=== PATIENT | female | born 1950 | race Caucasian/White ===

== ENCOUNTER → 2019-10-10 14:29 | Outpatient (BNVA) | payer MEDICARE, MEDICAID, SELFPAY | PROVIDERS: Family Provider Nurse Practitioner Family; PCP Nurse Practitioner Family; Visit Provider Nurse Practitioner Family | DX: N39.0 Urinary tract infection, site not specified (principal); Z68.27 Body mass index [BMI] 27.0-27.9, adult | CPT/HCPCS: 81003; 87086 ==

== ENCOUNTER → 2019-10-31 13:44 | Outpatient (BNVA) | payer MEDICARE, MEDICAID, SELFPAY | PROVIDERS: Family Provider Nurse Practitioner Family; PCP Nurse Practitioner Family; Visit Provider Nurse Practitioner Family | DX: R39.9 Unspecified symptoms and signs involving the genitourinary system (principal); R82.90 Unspecified abnormal findings in urine; Z68.27 Body mass index [BMI] 27.0-27.9, adult | CPT/HCPCS: 81003; 87086 ==

== ENCOUNTER 2019-12-21 08:14 | Day surgery (SDC) | payer MEDICARE, MEDICAID, SELFPAY ==
[2019-12-20 09:02] VITALS: BMI 27.3
[2019-12-21 08:27] VITALS: BP 170/78; PULSE 68; RESP 16; TEMP 36.2; O2SAT 96
--- NOTE | 2019-12-21 08:44 | P.ANESASSM_ITS ---
Pre-Anesthetic Assessment Pre-Anesthetic Assessment: Height/Weight: Height 1.65 m Weight 74.389 kg Preop Diagnosis: d Proposed Procedure: Operation Date: 12/21/19 09:30 Proposed Procedures p EGD 60325 R10(Not Applicable) - Rafael Loomis MD Last intake: Intake Last Liquid Date 12/20/19 Last Liquid Time 20:00 Last Solid Date 12/20/19 Last Solid Time 20:00 Social: Social History: No alcohol and No tobacco Exam: Pre-Anes Outpt Exam: alert, oriented x 3, clear to auscultation yadi aterally and regular rate & rhythm Airway: Submandibular: WNL Cervical ROM: WNL MP: 2 Dentition: False (upper) and Other (poor) Pulmonary: Pulmonary: None reported CV/HEM: CV/HEM: CAD, HTN and UT : : UTI Hepatic: Hepatic: None reported GI: GI: GERD Metabolic: Metabolic: Hyperlipidemia Musc/skel: Musc/skel: OA/DJD Neuropsych: Neuropsych: 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) Anesthetic Plan: ASA status: 3 Anesthesia: Anesthesia Evaluation and MAC PFSH Anesthesia PFSH: Medical History CAD (coronary artery disease) CVA (cerebral vascular accident) Enrolled in chronic care management Epigastric pain Essential hypertension Fibromyalgia History of UT (myocardial infarction) Hyperlipidemia Postmenopausal HRT (hormone replacement therapy) Rheumatoid arteritis Urinary tract infection Surgical History History of carotid endarterectomy r History of cholecystectomy History of hysterectomy History of shoulder surgery r History of thumb surgery bilat Social History Smoking and tobacco status: never smoked Alcohol intake: never Marital status: History of recent travel: No Current gender identity: Female Data Anesthesia Cardiac Studies: No Data to Display
[2019-12-21] MEDS: sodium chloride 0.9% 1,000 ML 30 ML IV (08:52)
--- NOTE | 2019-12-21 09:31 | W.PM.OPSUD ---
Surgery/Procedure H&P Update DATE OF PROCEDURE: December 21, 2019 DATE H&P PERFORMED: 11/28/19 PREOP DIAGNOSIS: d PLANNED PROCEDURE: Operation Date: 12/21/19 09:30 Proposed Procedures p EGD 45932 R10(Not Applicable) - Rafael Loomis MD
[2019-12-21 09:45] VITALS: BP 136/77; PULSE 67; RESP 16; TEMP 36.6; O2SAT 95
[2019-12-21 10:00] VITALS: BP 154/80; PULSE 64; RESP 16; TEMP 36.6; O2SAT 96
--- NOTE | 2019-12-21 12:09 | SUR.PHASEII ---
METOCLOPRAMIDE 5MG PO AC DISPENSE 90 REFILL 3 CALLED OUT TO [facility] PER DR KRISHNA'S ORDER AND PT CALLED AND INFORMED HER OF THIS AND TO DISCONTINUE IBUPROFEN AND VERBALIZED UNDERSTANDING
== END 2019-12-21 10:10 | disposition home or self-care (01) ==
PROVIDERS: Family Provider Nurse Practitioner Family; PCP Nurse Practitioner Family; Visit Provider Internal Medicine
PROC: 0DJ08ZZ Inspection of Upper Intestinal Tract, Via Natural or Artificial Opening Endoscopic (ICD-10-PCS; CPT 43235; principal; 2019-12-21 09:30)
DX: R10.13 Epigastric pain (principal); K31.89 Other diseases of stomach and duodenum; Z79.82 Long term (current) use of aspirin; I25.10 Atherosclerotic heart disease of native coronary artery without angina pectoris; M79.7 Fibromyalgia; I25.2 Old myocardial infarction; E78.5 Hyperlipidemia, unspecified; M06.9 Rheumatoid arthritis, unspecified; I10 Essential (primary) hypertension; M19.90 Unspecified osteoarthritis, unspecified site; I69.851 Hemiplegia and hemiparesis following other cerebrovascular disease affecting right dominant side
CPT/HCPCS: 12345; 43235; J2001; J2704; J7030

== ENCOUNTER 2020-03-04 08:00 | Outpatient (RCR) | payer MEDICARE, MEDICAID, SELFPAY | END 2020-04-24 08:00 | disposition home or self-care (01) | LOC: GPT 08:00 | PROVIDERS: PCP Nurse Practitioner Family; Referring Provider Physical Medicine & Rehabilitation; Visit Provider Physical Medicine & Rehabilitation | DX: M46.04 Spinal enthesopathy, thoracic region (principal); M54.6 Pain in thoracic spine | CPT/HCPCS: 97032; 97110; 97140; 97161; 97164; 97530 ==

== ENCOUNTER → 2020-03-20 11:27 | Outpatient (BNVA) | payer MEDICARE, MEDICAID, SELFPAY | PROVIDERS: Family Provider Nurse Practitioner Family; PCP Nurse Practitioner Family; Visit Provider Nurse Practitioner Family | DX: I10 Essential (primary) hypertension (principal) | CPT/HCPCS: 80053; 80061; 83735; 84439; 84443 ==

== ENCOUNTER → 2020-05-09 11:43 | Outpatient (BNVA) | payer MEDICARE, MEDICAID, SELFPAY | PROVIDERS: Family Provider Nurse Practitioner Family; PCP Nurse Practitioner Family; Visit Provider Nurse Practitioner Family | DX: M79.642 Pain in left hand (principal); M79.641 Pain in right hand; R79.89 Other specified abnormal findings of blood chemistry; R30.0 Dysuria | CPT/HCPCS: 73130; 80053; 81000 ==

== ENCOUNTER → 2020-05-12 08:59 | Outpatient (BNVA) | payer MEDICARE, MEDICAID, SELFPAY | PROVIDERS: Family Provider Nurse Practitioner Family; PCP Nurse Practitioner Family; Visit Provider Nurse Practitioner Family | DX: R30.0 Dysuria (principal); I10 Essential (primary) hypertension | CPT/HCPCS: 80053; 81000; 87086 ==

== ENCOUNTER 2020-05-19 11:36 | Outpatient (CLI) | payer MEDICARE, MEDICAID, SELFPAY ==
--- NOTE | 2020-05-19 11:51 | MM_ITS ---
WS: [id number] BILATERAL SCREENING DIGITAL MAMMOGRAM WITH CAD HISTORY: SCREENING COMPARISON: 02/06/2019 and 01/14/2017 Bilateral CC and MLO views submitted. Computer aided detection analyzed. Breast composition: There are scattered areas of fibroglandular density. No suspicious masses, microc alcifications or architectural distortion. MM/[place] [id number] IMPRESSION: BI-RADS: 1-Negative FOLLOW UP: 1 Year Follow-up
== END 2020-05-19 11:37 | disposition home or self-care (01) ==
LOC: RADSHAW 11:42
PROVIDERS: PCP Nurse Practitioner Family; Visit Provider Nurse Practitioner Family
DX: Z12.31 Encounter for screening mammogram for malignant neoplasm of breast (principal)
CPT/HCPCS: 77067

== ENCOUNTER 2020-07-18 10:40 | Outpatient (CLI) | payer MEDICARE, MEDICAID, SELFPAY ==
--- NOTE | 2020-07-18 10:46 | XR_ITS ---
WS: [id number] Right hand, 2 views, 07/18/2020 Clinical Data: hand pain Comparison: Right hand, 05/09/2020. Findings: No fractures or dislocations are seen. There is absence of the triquetrum. There is osteo arthritic changes of the right first IP joint, the second through fifth PIP joints and second through fifth DIP joints. No periarticular demineralization is present. There are no periarticular calcifica tions. 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
--- NOTE | 2020-07-18 10:46 | XR_ITS ---
WS: [id number] Left foot, 2 views, 07/18/2020 Clinical Data: foot pain Comparison: Left foot, 06/08/2017. Findings: No fractures or dislocations are seen. No bone destruction or erosion is noted. There is a bunion at the head of the left first metatarsal.There is a plantar spur. No periarticular demineralization or c alcifications are seen. XR/XR foot LT 2V [id number] Impression: Bunion at head of left first metatarsal.
--- NOTE | 2020-07-18 10:46 | XR_ITS ---
WS: [id number] Left hand, 2 views, 07/18/2020 Clinical Data: hand pain Comparison: Left hand, 05/09/2020. Findings: No fractures or dislocations are seen. The soft tissues are unremarkable. There is absence of the tri quetrum. There is osteoarthritic change of the left first IP joint. There is mild osteoarthritic narr owing of the left second through fifth PIP joints and also of the DIP joints. No periarticular demine ralization or significant calcifications are seen. XR/XR hand LT 2V [id number] Impression: Osteoarthritic changes of the left first IP joint and of the second through fif th PIP and DIP joints of the left hand.
--- NOTE | 2020-07-18 10:46 | XR_ITS ---
WS: [id number] Right foot, 2 views, 07/18/2020 Clinical Data: foot pain Comparison: None. Findings: No fractures or dislocations are seen. No bone destruction or erosion is noted. There is a small buni on at the head of the right first metatarsal. Hammertoe deformities of the third through fifth toes i s seen. There is a plantar spur. No periarticular demineralization or calcifications are noted. XR/XR foot RT 2V [id number] Impression: 1. Bunion of the head of the right first metatarsal. 2. Hammertoe deformities of the third through fifth toes of the right foot.
== END 2020-07-18 10:41 | disposition home or self-care (01) ==
PROVIDERS: PCP Nurse Practitioner Family; Visit Provider Internal Medicine
DX: M25.542 Pain in joints of left hand (principal); Z79.899 Other long term (current) drug therapy; M79.673 Pain in unspecified foot; Z11.59 Encounter for screening for other viral diseases; D86.9 Sarcoidosis, unspecified; R20.0 Anesthesia of skin; M25.541 Pain in joints of right hand; M25.519 Pain in unspecified shoulder; M25.562 Pain in left knee; M25.561 Pain in right knee
CPT/HCPCS: 36415; 73120; 73620; 85651; 86140; 86431; 86704; 86803; 86812; 87340; 99203

== ENCOUNTER 2020-08-08 12:44 | Outpatient (CLI) | payer MEDICARE, MEDICAID, SELFPAY ==
--- NOTE | 2020-08-08 12:53 | USCV_ITS ---
Michelle Mello Age: 70 Gender: F : 1950 Exam Date: 08/08/2020 13:20 Ordering Phys: Maury eGiger MD (Andy[email or web address] [place] Technologist: Marlee Carrillo [place] [facility] [place]: carotid stenosis Risk Factors: Previous Vascular Surgery: R CEA Right Brachial BP: / Left Brachial BP: / Right Left Velocity (cm/s) Spectral Plaque Velocity (cm/s) Spectral Plaque Syst/Diast Broadening Syst/Diast Broadening 72.20/ 13.20 Prox CCA 53.60 / 11.50 89.30/ 17.60 Mid CCA 52.40 / 13.40 55.50/ 16.10 Distal CCA 51.40 / 14.60 63.70/ 12.70 Prox ICA 50.70 / 13.90 83.50/ 22.50 Mid ICA 70.80 / 18.70 82.30/ 20.10 Distal ICA 72.90 / 20.80 60.10 ECA 50.70 0.93 ICA/CCA 1.39 Antegrade Vertebral Antegrade 39.50/ 9.30 cm/s 44.80/ 11.20 cm/s Tri Subclavian Bi 111.8 95.00 0 CONCLUSIONS Right ICA stenosis <50%. Prior Right CEA Left ICA stenosis <50%. Normal antegrade Doppler flow noted in the right vertebral artery. Normal antegrade Doppler flow noted in the left vertebral artery. Ata Meadows MD (Electronically Signed) Final Date: 08 August 2020 17:07 S
== END 2020-08-08 12:45 | disposition home or self-care (01) ==
PROVIDERS: PCP Nurse Practitioner Family; Visit Provider Thoracic Surgery (Cardiothoracic Vascular Surgery)
DX: I65.23 Occlusion and stenosis of bilateral carotid arteries (principal)
CPT/HCPCS: 93880

== ENCOUNTER → 2021-02-23 10:26 | Outpatient (BNVA) | payer MEDICARE, MEDICAID, SELFPAY | PROVIDERS: PCP Nurse Practitioner Family; Visit Provider Family Medicine | DX: R82.90 Unspecified abnormal findings in urine (principal); R63.4 Abnormal weight loss | CPT/HCPCS: 80053; 81003; 84439; 84443; 85025; 87086 ==

== ENCOUNTER 2021-05-11 10:38 | Outpatient (CLI) | payer MEDICARE, MEDICAID, SELFPAY ==
--- NOTE | 2021-05-11 11:00 | USCV_ITS ---
Michelle Mello Age: 71 Gender: F : 1950 Exam Date: 05/11/2021 11:18 Ordering Phys: Maury Geiger MD (Andy) ([facility] [place]) Technologist: Osiris Luna Exam Location: [facility] [place] Indication: RECHECK RT CEA Risk Factors: Unknown Previous Vascular Surgery: RCEA Right Brachial BP: / Left Brachial BP: / Right Left Velocity (cm/s) Spectral Plaque Velocity (cm/s) Spectral Plaque Syst/Diast Broadening Syst/Diast Broadening 94.80/ 22.10 Prox CCA 51.90 / 13.50 72.80/ 25.40 Mid CCA 63.40 / 20.20 79.40/ 24.30 Distal CCA 62.50 / 17.30 Hetro 80.80/ 21.70 Prox ICA 44.20 / 18.30 63.10/ 18.70 Mid ICA 45.20 / 14.40 75.90/ 25.00 Distal ICA 44.10 / 13.80 103.50 ECA 64.40 1.11 ICA/CCA 0.71 Antegrade Vertebral Antegrade 55.70/ 18.30 cm/s 41.80/ 16.00 cm/s Tri Subclavian Bi 87.00 63.60 FINDINGS Minimal dense plaques at the bifurcation and the proximal internal carotid arteries bilaterally. Intimal thickening in the common carotid arteries bilaterally. Antegrade flow in the vertebral arteries bilaterally. Normal Doppler flow velocities in the subclavian, vertebral and external carotid arteries. CONCLUSIONS Minimal dense plaques at the bifurcations and proximal internal carotid arteries bilaterally suggesting less than 50% stenosis. Intimal thickening in the common carotid arteries bilaterally. No significant stenosis in the vertebral, subclavian and external carotid arteries bilaterally Dr Tato Reynoso MD [facility] (Electronically Signed) Final Date: 11 May 2021 17:00 S
== END 2021-05-11 10:39 | disposition home or self-care (01) ==
PROVIDERS: PCP Nurse Practitioner Family; Visit Provider Thoracic Surgery (Cardiothoracic Vascular Surgery)
DX: I65.23 Occlusion and stenosis of bilateral carotid arteries (principal)
CPT/HCPCS: 93880

== ENCOUNTER → 2021-06-26 14:54 | Outpatient (BNVA) | payer MEDICARE, MEDICAID, SELFPAY | PROVIDERS: PCP Nurse Practitioner Family; Visit Provider Nurse Practitioner Family | DX: R30.0 Dysuria (principal) | CPT/HCPCS: 81000 ==

== ENCOUNTER 2021-10-12 08:07 | Outpatient (CLI) | payer MEDICARE, MEDICAID, SELFPAY ==
--- NOTE | 2021-10-12 08:16 | MM_ITS ---
WS: [id number] SCREENING DIGITAL MAMMOGRAM WITH CAD HISTORY: SCREENING COMPARISON: 10/12/2021, 05/19/2020, 01/23/2018 Bilateral CC and MLO views submitted. Computer aided detection analyzed. Breast composition: The breasts are heterogeneously dense, which may obscure small masses. Focal asym metries are noted on the RIGHT CC projection. One of these asymmetries measures 6 mm just lateral to the nipple in the anterior breast. Additional 5 mm asymmetry central to the nipple at a middle depth. On the lateral projection there is an asymmetry measuring 6 mm just above the nipple line anteriorly . All 3 of these areas need further evaluation. Additional benign vascular calcifications. MM/[place] [id number] IMPRESSION: BI-RADS: 0-Incomplete: Need additional imaging evaluation FOLLOW UP: Need Additional Imaging RIGHT breast: Spot compression views (CC and MLO). True ML. Ultrasound to follo w if abnormality persists.
== END 2021-10-12 08:08 | disposition home or self-care (01) ==
LOC: RADSHAW 08:12
PROVIDERS: PCP Nurse Practitioner Family; Visit Provider Nurse Practitioner Family
DX: Z12.31 Encounter for screening mammogram for malignant neoplasm of breast (principal)
CPT/HCPCS: 77067

== ENCOUNTER 2021-11-03 10:43 | Outpatient (CLI) | payer MEDICARE, MEDICAID, SELFPAY ==
--- NOTE | 2021-11-03 10:59 | US_ITS ---
WS: [id number] ADDITIONAL VIEWS RIGHT BREAST RIGHT breast ultrasound, limited HISTORY: Inconclusive findings on the screening mammogram. New asymmetries in the anterior breast. COMPARISON: 10/12/2021, 05/19/2020 and 02/06/2019 Compression views right CC and MLO projection. True ML also submitted. Increased density persists pos terior to the RIGHT nipple seen on the CC projection. Some of the asymmetries scattered within the an terior to mid breast have resolved with additional views. RIGHT breast ultrasound, limited. The nipple is slightly inverted but this is chronic. There is mild duct dilatation extending from the nipple along with a small amount of increased density within the duct. Probably duct ectasia. There is a small nodule within the duct measuring 5 x 4 x 4 mm posterior to the nipple. US/US breast RT limited* [id number] IMPRESSION: BI-RADS: 3-Probably Benign FOLLOW-UP: 6 Month Follow-up Recommend 6 month diagnostic RIGHT mammogram follow-up and possible ultrasound. Very dense and difficult to evaluate soft tissue in the anterior RIGHT breast. There are a few mildly dilated ducts with ectasia. Recommend 6 month reevaluat ion to confirm stability.
== END 2021-11-03 10:44 | disposition home or self-care (01) ==
LOC: RADSHAW 10:47
PROVIDERS: PCP Nurse Practitioner Family; Visit Provider Nurse Practitioner Family
DX: R92.8 Other abnormal and inconclusive findings on diagnostic imaging of breast (principal); N60.41 Mammary duct ectasia of right breast
CPT/HCPCS: 76642; 77065

== ENCOUNTER → 2021-12-03 08:17 | Outpatient (BNVA) | payer MEDICARE, MEDICAID, SELFPAY | PROVIDERS: PCP Nurse Practitioner Family; Visit Provider Nurse Practitioner Family | DX: I10 Essential (primary) hypertension (principal); E55.9 Vitamin D deficiency, unspecified; Z79.899 Other long term (current) drug therapy; Z68.24 Body mass index [BMI] 24.0-24.9, adult | CPT/HCPCS: 80053; 80061; 82306; 84443 ==

== ENCOUNTER 2021-12-04 21:12 | Observation (INO) | payer MEDICARE, MEDICAID, SELFPAY ==
--- NOTE | 2021-12-04 21:40 | ED_ITS ---
Documented by User: Vaibhav Cortez MD 12/14/21 17:31 HPI - Chest Pain General: Chief Complaint: Chest Pain Stated Complaint: CP Time Seen by Provider: 12/04/21 21:40 History of Present Illness: Ms. Mello is a 71-year-old lady with significant past medical history of prior MO, CAD, CVA, carotid disease, hypertension, hyperlipidemia who presents to the emergency department due to chest discomfort. She has been at her baseline health the past few days without specific changes noted. At approximately 4:30 PM today she began to have a deep pain in her c hest. This was mostly substernal with some radiation towards the left. There is no radiation to the arms or other typical cardiac features. She denies similar chest pain to this in the past. She does endorse that she has had significant stress today relating to her daughter being in a motor vehicle accident. Her symptoms have since resolved and the last MO that she had a discomfort was left anterior chest. Intensity of symptoms at worst was moderate to severe. Course is resolved. No other specific changes in health, exacerbating, or alleviating factors identified. Pertinent past history: coronary artery disease and prior MO Onset (ago): hour(s) Timing of current episode: constant and now resolved Prior episodes: Yes Onset: during rest Pain location: substernal and left chest Severity: moderate Review of Systems General: Reports: 10 or more systems reviewed and unremarkable except in HPI and below PFSH ED PFSH: Medical History (Updated 12/14/21 @ 17:31 by Vaibhav Cortez MD) CAD (coronary artery disease) Carotid stenosis CVA (cerebral vascular accident) Enrolled in chronic care management Epigastric pain Essential hypertension Fibromyalgia History of MO (myocardial infarction) Hyperlipidemia Postmenopausal HRT (hormone replacement therapy) Rheumatoid arteritis Urinary tract infection Vitamin D deficiency Surgical History History of carotid endarterectomy r History of cholecystectomy History of hysterectomy History of shoulder surgery r History of thumb surgery bilat Social History Smoking and tobacco status: former smoker (6 months as teenager) Alcohol intake: never Marital status: History of recent travel: No Current gender identity: Female Physical Exam Const: COMMON NORMALS: alert GENERAL APPEARANCE: cooperative, well developed and ill appearing HENMT: COMMON NORMALS: normocephalic and atraumatic HEAD & SCALP: normocephalic and atraumatic THROAT: posterior oropharynx normal Eye: COMMON NORMALS: conjunctivae normal CONJUNCTIVA: Yes conjunctivae normal SCLERA: sclerae normal Neck/C-Spine: COMMON NORMALS: supple GENERAL: Yes trachea midline Resp: COMMON NORMALS: normal respiratory effort EFFORT & INSPECTION: Yes able to speak in complete sentences AUSCULTATION: diminished lung sounds Cardio: COMMON NORMALS: regular rate and regular rhythm RATE: regular rate RHYTHM: regular rhythm GI: COMMON NORMALS: Soft to palpation PALPATION: Yes Soft to palpation and No Tenderness to palpation present (GI) PERCUSSION: normal to percussion Extremity: GENERAL: Yes normal exam except as noted and No edema Neuro: COMMON NORMALS: moves all extremities SENSORIUM/ORIENTATION: Yes alert and No Orientation impaired Psych: COMMON NORMALS: mental status grossly normal and Normal thought process present THOUGHT PROCESS: Normal thought process present Course ED course: - Patient was seen and evaluated by me at bedside - Patient placed on cardiac monitors, IV access obtained - Initial evaluation notable for exam as above, somewhat ill appearing despite resolution of pain -Aspirin given - Labs notable for no leukocytosis. No significant metabolic abnormality. - Imaging notable for no acute infiltrate identified on chest x-ray - Care handed off to overnight ED physician Dr. Duke pending repeat troponin and disposition, likely admission for further cardiac evaluation. Vital Signs: Vital signs: Vital Signs Temperature 97.2 F L 12/06/21 17:01 Pulse Rate 69 12/06/21 17:01 Respiratory Rate 18 12/06/21 17:01 Blood Pressure 130/71 12/06/21 17:01 Pulse Oximetry 68 L 12/06/21 17:01 MDM - Chest Pain Medical Records I reviewed the patient's medical records. Lab Data I reviewed the patient's lab results. : 12/06/21 02:54 12/06/21 02:54 Radiology Impressions Chest X-Ray 12/04/21 21:58 IMPRESSION: No acute infiltrate. Laboratory Results WBC 7.4 10^3/uL (4.0-10.0) 12/04/21 21:53 RBC 3.96 10^6/uL (4.1-5.3) L 12/04/21 21:53 Hgb 12.4 g/dL (11.5-15.3) 12/04/21 21:53 Hct 38.4 % (37.0-47.0) 12/04/21 21:53 MCV 97.0 fl (81-99) 12/04/21 21:53 MCH 31.3 pg (28.0-34.0) 12/04/21 21:53 MCHC 32.3 g/dL (30.0-36.0) 12/04/21 21:53 RDW 12.9 % (12.1-15.1) 12/04/21 21:53 Plt Count 193 10^3/cmm (130-400) 12/04/21 21:53 MPV 9.6 fL (7.4-10.4) 12/04/21 21:53 Neut % (Auto) 57.1 % 12/04/21 21:53 Lymph % (Auto) 32.4 % 12/04/21 21:53 Spalding % (Auto) 7.2 % 12/04/21 21:53 Eos % (Auto) 2.4 % 12/04/21 21:53 Baso % (Auto) 0.5 % 12/04/21 21:53 Neut # (Auto) 4.22 10^3/uL (1.8-7.7) 12/04/21 21:53 Lymph # (Auto) 2.4 10^3/uL (0.8-4.8) 12/04/21 21:53 Spalding # (Auto) 0.5 10^3/uL (0.2-0.9) 12/04/21 21:53 Eos # (Auto) 0.2 10^3/uL (0.0-0.8) 12/04/21 21:53 Baso # (Auto) 0.0 10^3/uL (0.0-0.1) 12/04/21 21:53 Nucleated RBC % (auto) 0 % 12/04/21 21:53 Nucleated RBCs # 0.0 /100WBC 12/04/21 21:53 Sodium 137 mmol/L (136-145) 12/04/21 21:53 Potassium 5.0 mmol/L (3.5-5.1) 12/04/21 21:53 Chloride 102 mmol/L (98-107) 12/04/21 21:53 Carbon Dioxide 25 mmol/L (22-29) 12/04/21 21:53 Anion Gap 15.0 (5-19) 12/04/21 21:53 BUN 19 mg/dL (8-23) 12/04/21 21:53 Creatinine 0.8 mg/dL (0.5-0.9) 12/04/21 21:53 GFR Calculation Not Reportable 12/04/21 21:53 Glucose 107 mg/dL (65-115) 12/04/21 21:53 Calculated Osmolality 287 mOsm/kg (285-295) 12/04/21 21:53 Calcium 9.6 mg/dL (8.5-10.5) 12/04/21 21:53 Magnesium 1.9 mg/dL (1.7-2.3) 12/04/21 21:53 Total Bilirubin 0.3 mg/dL (0.15-1.2) 12/04/21 21:53 AST 21 U/L (0-32) 12/04/21 21:53 ALT 9 U/L (0-33) 12/04/21 21:53 Alkaline Phosphatase 70 IU/L (35-105) 12/04/21 21:53 Troponin T Baseline 50 ng/L (0-10) H 12/04/21 21:53 Troponin T 120 Minute 68.36 ng/L (0-10) H 12/04/21 23:40 Delta Troponin T 18.36 ABS# (0-10) H* 12/04/21 23:40 NT-Pro-B Natriuret Pep 1008 pg/mL (0-125) H 12/04/21 21:53 Total Protein 6.2 g/dL (6.6-8.7) L 12/04/21 21:53 Albumin 3.6 g/dL (3.5-5.2) 12/04/21 21:53 Globulin 2.6 g/dL (1.3-4.6) 12/04/21 21:53 Triglycerides 50 mg/dL (0-150) 12/04/21 21:53 Cholesterol 119 mg/dL (0-200) 12/04/21 21:53 LDL Cholesterol, Calc 47 mg/dL (50-129) L 12/04/21 21:53 HDL Cholesterol 62 mg/dL (60-100) 12/04/21 21:53 LDL/HDL Ratio 0.76 RATIO (0.00-3.22) 12/04/21 21:53 Cholesterol/HDL Ratio 1.92 mg/dL (0.0-4.40) 12/04/21 21:53 Lipase 29 U/L (13-60) 12/04/21 21:53 Free T4 1.33 ng/dL (0.82-1.77) 12/04/21 21:53 EKG Data EKG 2: I personally reviewed and interpreted this EKG as follows: EKG interpretation date: 12/04/21 EKG interpretation time: 23:03 Interpretation: Twelve-lead EKG shows a regular rhythm at a rate of 59. WI interval 143, QRS duration 95, QTc 420. Normal axis. Interpretation: Sinus rhythm. EKG 1: I personally reviewed and interpreted this EKG as follows: EKG interpretation date: 12/04/21 EKG interpretation time: 21:55 Interpretation: Twelve-lead EKG shows a regular rhythm at a rate of 64. WI interval 145, QRS duration 94, QTc 419. Normal axis. Interpretation: Sinus rhythm. PVC. Discharge Plan Discharge Patient Disposition: Admitted As Inpatient Admit Provider: Geri Rondon Clinical Impression: Chest pain, Non-ST elevation (NSTEMI) myocardial infarction Condition: Stable Discharge Diet: Cardiac Discharge Activity: Limit activity as instructed Coding Level of Care Code ED Head Machine Feeder for Chg Fwd Documented by User: Randell Duke DO 12/05/21 03:09 HPI - Chest Pain General: Chief Complaint: Chest Pain Stated Complaint: CP Time Seen by Provider: 12/04/21 21:40 PFSH ED PFSH: Medical History (Updated 12/14/21 @ 17:31 by Vaibhav Cortez MD) CAD (coronary artery disease) Carotid stenosis CVA (cerebral vascular accident) Enrolled in chronic care management Epigastric pain Essential hypertension Fibromyalgia History of MO (myocardial infarction) Hyperlipidemia Postmenopausal HRT (hormone replacement therapy) Rheumatoid arteritis Urinary tract infection Vitamin D deficiency Surgical History History of carotid endarterectomy r History of cholecystectomy History of hysterectomy History of shoulder surgery r History of thumb surgery bilat Social History Smoking and tobacco status: former smoker (6 months as teenager) Alcohol intake: never Marital status: History of recent travel: No Current gender identity: Female Course Vital Signs: Vital signs: Vital Signs Temperature 97.2 F L 12/06/21 17:01 Pulse Rate 69 12/06/21 17:01 Respiratory Rate 18 12/06/21 17:01 Blood Pressure 130/71 12/06/21 17:01 Pulse Oximetry 68 L 12/06/21 17:01 MDM - Chest Pain Medical Decision Making 71-year-old female checked out to me by the previous physician at shift change. This lady had chest pain, which is now resolved. EKG did not show any acute ST changes. First troponin was 50. Second troponin was elevated as well showing a delta of 18. As this is significant, and she has not had recent prior work-up, she will be observed for 6-hour troponin, and further testing. Hospitalist is aware. She is pain-free now and stable. Lab Data : 12/06/21 02:54 12/06/21 02:54 Radiology Impressions Chest X-Ray 12/04/21 21:58 IMPRESSION: No acute infiltrate. Laboratory Results WBC 7.4 10^3/uL (4.0-10.0) 12/04/21 21:53 RBC 3.96 10^6/uL (4.1-5.3) L 12/04/21 21:53 Hgb 12.4 g/dL (11.5-15.3) 12/04/21 21:53 Hct 38.4 % (37.0-47.0) 12/04/21 21:53 MCV 97.0 fl (81-99) 12/04/21 21:53 MCH 31.3 pg (28.0-34.0) 12/04/21 21:53 MCHC 32.3 g/dL (30.0-36.0) 12/04/21 21:53 RDW 12.9 % (12.1-15.1) 12/04/21 21:53 Plt Count 193 10^3/cmm (130-400) 12/04/21 21:53 MPV 9.6 fL (7.4-10.4) 12/04/21 21:53 Neut % (Auto) 57.1 % 12/04/21 21:53 Lymph % (Auto) 32.4 % 12/04/21 21:53 Spalding % (Auto) 7.2 % 12/04/21 21:53 Eos % (Auto) 2.4 % 12/04/21 21:53 Baso % (Auto) 0.5 % 12/04/21 21:53 Neut # (Auto) 4.22 10^3/uL (1.8-7.7) 12/04/21 21:53 Lymph # (Auto) 2.4 10^3/uL (0.8-4.8) 12/04/21 21:53 Spalding # (Auto) 0.5 10^3/uL (0.2-0.9) 12/04/21 21:53 Eos # (Auto) 0.2 10^3/uL (0.0-0.8) 12/04/21 21:53 Baso # (Auto) 0.0 10^3/uL (0.0-0.1) 12/04/21 21:53 Nucleated RBC % (auto) 0 % 12/04/21 21:53 Nucleated RBCs # 0.0 /100WBC 12/04/21 21:53 Sodium 137 mmol/L (136-145) 12/04/21 21:53 Potassium 5.0 mmol/L (3.5-5.1) 12/04/21 21:53 Chloride 102 mmol/L (98-107) 12/04/21 21:53 Carbon Dioxide 25 mmol/L (22-29) 12/04/21 21:53 Anion Gap 15.0 (5-19) 12/04/21 21:53 BUN 19 mg/dL (8-23) 12/04/21 21:53 Creatinine 0.8 mg/dL (0.5-0.9) 12/04/21 21:53 GFR Calculation Not Reportable 12/04/21 21:53 Glucose 107 mg/dL (65-115) 12/04/21 21:53 Calculated Osmolality 287 mOsm/kg (285-295) 12/04/21 21:53 Calcium 9.6 mg/dL (8.5-10.5) 12/04/21 21:53 Magnesium 1.9 mg/dL (1.7-2.3) 12/04/21 21:53 Total Bilirubin 0.3 mg/dL (0.15-1.2) 12/04/21 21:53 AST 21 U/L (0-32) 12/04/21 21:53 ALT 9 U/L (0-33) 12/04/21 21:53 Alkaline Phosphatase 70 IU/L (35-105) 12/04/21 21:53 Troponin T Baseline 50 ng/L (0-10) H 12/04/21 21:53 Troponin T 120 Minute 68.36 ng/L (0-10) H 12/04/21 23:40 Delta Troponin T 18.36 ABS# (0-10) H* 12/04/21 23:40 NT-Pro-B Natriuret Pep 1008 pg/mL (0-125) H 12/04/21 21:53 Total Protein 6.2 g/dL (6.6-8.7) L 12/04/21 21:53 Albumin 3.6 g/dL (3.5-5.2) 12/04/21 21:53 Globulin 2.6 g/dL (1.3-4.6) 12/04/21 21:53 Triglycerides 50 mg/dL (0-150) 12/04/21 21:53 Cholesterol 119 mg/dL (0-200) 12/04/21 21:53 LDL Cholesterol, Calc 47 mg/dL (50-129) L 12/04/21 21:53 HDL Cholesterol 62 mg/dL (60-100) 12/04/21 21:53 LDL/HDL Ratio 0.76 RATIO (0.00-3.22) 12/04/21 21:53 Cholesterol/HDL Ratio 1.92 mg/dL (0.0-4.40) 12/04/21 21:53 Lipase 29 U/L (13-60) 12/04/21 21:53 Free T4 1.33 ng/dL (0.82-1.77) 12/04/21 21:53 Discharge Plan Discharge Patient Disposition: Admitted As Inpatient Admit Provider: Geri Rondon Clinical Impression: Chest pain, Non-ST elevation (NSTEMI) myocardial infarction Condition: Stable Discharge Diet: Cardiac Discharge Activity: Limit activity as instructed Coding Level of Care Code ED Head Machine Feeder for Stuart Martins
[2021-12-04 21:44] VITALS: BP 138/66; PULSE 59; RESP 18; TEMP 36.6; O2SAT 96; BMI 24.9
--- NOTE | 2021-12-04 21:58 | XRR_ITS ---
PROCEDURE INFORMATION: Exam: XR Chest Exam date and time: 12/04/2021 9:58 PM Age: 71 years old Clinical indication: Pain; Angina pectoris; Additional info: Chest pain TECHNIQUE: Imaging protocol: XR of the chest. Views: 1 view. COMPARISON: CR Chest 1 [place] [id number] 02/03/2018 3:47 PM FINDINGS: Lungs: Visualized portions of the lungs are clear. Left upper lobe pneumonia is seen on 02/03/2018 no longer identified. Pleural spaces: Unremarkable. No pleural effusion. No pneumothorax. Heart/Mediastinum: Heart is within normal limits of size. Bones/joints: There is scoliosis of the thoracic spine concave to the left. XR/XR chest 1V portable [id number] IMPRESSION: No acute infiltrate.
[2021-12-04 22:05] LABS: Basophils % 0.5 %; Eosinophils # 0.2 10^3/uL (0.0-0.8); Eosinophils % 2.4 %; Hematocrit 38.4 % (37.0-47.0); Hemoglobin 12.4 g/dL (11.5-15.3); Lymphocytes # 2.4 10^3/uL (0.8-4.8); Lymphocytes % 32.4 %; Mean Corpuscular HGB Conc 32.3 g/dL (30.0-36.0); Mean Corpuscular Hemoglobin 31.3 pg (28.0-34.0); Mean Platelet Volume 9.6 fL (7.4-10.4); Monocytes # 0.5 10^3/uL (0.2-0.9); Monocytes % 7.2 %; Neutrophils # 4.22 10^3/uL (1.8-7.7); Neutrophils % 57.1 %; Nucleated Red Blood Cells % 0 %; Platelet Count 193 10^3/cmm (130-400); Red Blood Count 3.96 10^6/uL (4.1-5.3); Red Cell Distribution Width 12.9 % (12.1-15.1); White Blood Count 7.4 10^3/uL (4.0-10.0)
[2021-12-04] MEDS: aspirin 81 mg Chew Tablet 324 MG PO (22:22)
[2021-12-04 22:36] LABS: Troponin(5th) Baseline 50 ng/L (0-10)
[2021-12-04 22:45] LABS: Alanine Aminotransferase 9 U/L (0-33); Albumin Level 3.6 g/dL (3.5-5.2); Alkaline Phosphatase 70 IU/L (35-105); Aspartate Amino Transferase 21 U/L (0-32); Blood Urea Nitrogen 19 mg/dL (8-23); Calcium 9.6 mg/dL (8.5-10.5); Carbon Dioxide 25 mmol/L (22-29); Chloride 102 mmol/L (98-107); Creatinine Clr Calc Pharmacy 58.4612; Globulin 2.6 g/dL (1.3-4.6); Glucose 107 mg/dL (65-115); Lipase 29 U/L (13-60); NT Pro B Type Natriuretic Pept 1008 pg/mL (0-125); Osmolality Calculated 287 mOsm/kg (285-295); Sodium 137 mmol/L (136-145); Total Bilirubin 0.3 mg/dL (0.15-1.2); Total Protein 6.2 g/dL (6.6-8.7)
--- NOTE | 2021-12-04 23:58 | ECG_ITS ---
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 Measurements Intervals [place] Rate: 59 P: 65 AR: 143 QRS: 22 QRSD: 95 T: 61 QT: 421 QTc: 419 Interpretive Statements SINUS BRADYCARDIA SEPTAL MYOCARDIAL INFARCTION , OF INDETERMINATE AGE [40+ ms Q WAVE IN V1/V2] Compared to ECG 02/03/2018 15:56:43 Myocardial infarct finding now present Sinus tachycardia no longer present Left ventricular hypertrophy no longer present ST (T wave) deviation no longer present Electronically Signed On 12-05-2021 8:42:01 OXYGEN EQUIPMENT TECHNICIAN by Anais Jones M.D. [id number]
[2021-12-05] VITALS (10 sets, daily range): BP systolic 116–183; BP diastolic 58–101; PULSE 58–94; RESP 16–21; TEMP 36.4–37.2; O2SAT 96–97
[2021-12-05 00:03] LABS: Troponin 5 2HR 68.36 ng/L (0-10)
[2021-12-05 00:08] LABS: Troponin 5 2HR Delta 18.36 ABS# (0-10)
--- NOTE | 2021-12-05 01:12 | PM.HP ---
Providers/Chief Complaint Primary Care Provider: Promise Salazar NP Chief Complaint: CP History of Present Illness The patient is a 71-year-old female who presented to [facility] chest pain which started approximate 4:30 PM on December 04, 2021. She states she was on a phone call with her daughter and she became upset after learning that her daughter was in a motorcycle or car accident. She states that the check chest pain localized to the substernal area and later radiated to the left chest. She describes it as a pressure. Since the time of onset it was constant. As worst is rated 7 out of 10. In the emergency department she rates it as a 0 out of 10. She took clonidine at home which she takes for her blood pressure for the chest pain which did not improve the pain. She denies dyspnea, lightheaded, dizziness, diaphoresis, palpitations, sense of rapid heartbeat, since she knee regular heartbeat. Patient has known history of of history of coronary artery disease for which she is status post [place]. She also has a known history of peripheral vascular disease for which she is status post right carotid endarterectomy. She present for further evaluation Review of Systems General: Reports: 10 or more systems reviewed and unremarkable except in HPI and below Medications/Allergies Home Medications Medication Instructions Recorded Confirmed Last Taken Type aspirin 81 mg tablet,delayed 81 mg PO DAILY tab 10/10/19 12/03/21 12/20/19 History release (Adult Low Dose Aspirin) cholecalciferol (vitamin D3) 125 5,000 unit PO DAILY cap 10/10/19 12/03/21 12/20/19 History mcg (5,000 unit) capsule coenzyme Q10 100 mg capsule 100 mg PO DAILY cap 10/10/19 12/03/21 12/20/19 History cyclobenzaprine 10 mg tablet 10 mg PO PRN PRN 10/10/19 11/17/21 12/16/19 History hydrocortisone 0.5 % topical cream 1 applic TOPICAL BID PRN 10/10/19 12/03/21 12/20/19 History magnesium chloride 64 mg 64 mg PO DAILY tab 10/10/19 12/03/21 12/20/19 History (magnesium chloride) tablet,delayed release desoximetasone 0.05 % topical 1 applic TOPICAL TID #60 gm 12/06/19 12/03/21 12/20/19 Rx cream (Topicort) tramadol 50 mg tablet 50 mg PO TID PRN 07/18/20 12/03/21 Unknown History diclofenac sodium 1 % topical gel See Rx Instructions .ROUTE 12/22/20 12/03/21 Unknown Rx .COMPLEX #100 g lisinopril 40 mg tablet 40 mg PO DAILY #30 tab 04/08/21 12/03/21 Unknown Rx simvastatin 20 mg tablet See Rx Instructions .ROUTE 05/13/21 12/03/21 Unknown Rx .COMPLEX #90 tab lactulose 10 gram/15 mL oral See Rx Instructions .ROUTE 10/30/21 12/03/21 Unknown Rx solution (Constulose) .COMPLEX #237 ml conjugated estrogens 0.45 mg See Rx Instructions .ROUTE 11/15/21 12/03/21 Unknown Rx tablet (Premarin) .COMPLEX #90 tab clonidine HCl 0.1 mg tablet 0.1 mg PO DIRECTED PRN #45 tab 11/17/21 12/03/21 Unknown Rx potassium gluconate 595 mg (99 mg) 99 mg PO DAILY PRN tab 11/17/21 12/03/21 Unknown History tablet,extended release metoprolol succinate 50 mg See Rx Instructions .ROUTE 11/26/21 12/03/21 Unknown Rx tablet,extended release 24 hr .COMPLEX #90 tab oxybutynin chloride 10 mg See Rx Instructions .ROUTE 11/27/21 12/03/21 Unknown Rx tablet,extended release 24 hr .COMPLEX #90 tab mirabegron 50 mg tablet,extended See Rx Instructions .ROUTE 12/03/21 12/03/21 Unknown Rx release 24 hr (Myrbetriq) .COMPLEX #90 tab Allergies Allergy/AdvReac Type Severity Reaction Status Date / Time codeine Allergy Unknown Verified 12/03/21 10:09 PFSH Acute PFSH: Medical History CAD (coronary artery disease) Carotid stenosis CVA (cerebral vascular accident) Enrolled in chronic care management Epigastric pain Essential hypertension Fibromyalgia History of [place] (myocardial infarction) Hyperlipidemia Postmenopausal HRT (hormone replacement therapy) Rheumatoid arteritis Urinary tract infection Surgical History History of carotid endarterectomy r History of cholecystectomy History of hysterectomy History of shoulder surgery r History of thumb surgery bilat Social History Smoking and tobacco status: former smoker (6 months as teenager) Alcohol intake: never Marital status: History of recent travel: No Current gender identity: Female Vitals/I&O/Wt Last Vital Signs Temp 97.9 F 12/04/21 21:44 Pulse 59 L 12/05/21 00:00 Resp 16 12/05/21 00:00 BP 128/58 12/05/21 00:00 Pulse Ox 96 12/05/21 00:00 Weight last 48 hrs Weight 65.771 kg Physical Exam Const: COMMON NORMALS: no acute distress, average body habitus, patient oriented x3, no limitations, healthy appearing, alert and well nourished HENMT: COMMON NORMALS: normocephalic, atraumatic, hearing grossly normal bilaterally, external ears normal, EAC's normal, TM's normal bilaterally, Normal external nose present, Normal nasal mucous membranes and turbinates present, moist oral mucous membranes, oropharynx normal, dentition normal and gingiva normal HEAD & SCALP: normal to inspection FACE & SINUS: normal facial exam NOSE: Normal external nose present Eye: COMMON NORMALS: Equal, round and reactive pupils present, EOMs intact bilaterally, conjunctivae normal, no scleral icterus, no papilledema, normal visual [place] by confrontation and fundi normal bilaterally GENERAL EYE: appearance normal, both eyes and all related structures ALIGNMENT: Yes alignment normal EYELID: eyelids normal Neck/C-Spine: COMMON NORMALS: full ROM, no lymphadenopathy, supple, no meningeal signs, no JVD, Thyroid normal and No carotid bruits CERVICAL SPINE: Yes cervical ROM normal Chest: COMMONS NORMALS: normal inspection of the chest, normal palpation of entire chest wall, normal inspection of the breasts and normal palpation of the breasts Resp: COMMON NORMALS: normal respiratory effort, No retractions, No use of accessory muscles, clear to auscultation bilaterally and percussion normal Cardio: COMMON NORMALS: no JVD, regular rate, regular rhythm, S1 normal heart sound present, S2 normal heart sound present, No gallops present (Cardio), No clicks present (Cardio), No murmurs present (Cardio), No rub (Cardio) and Peripheral pulses 2+ throughout GI: COMMON NORMALS: Normal to inspection, nondistended, normoactive bowel sounds present, Soft to palpation, non-tender, No hepatosplenomegaly present, no masses and no bruits : COMMON NORMALS: Yes no CVA tenderness, Yes normal external appearance, Yes normal appearance of the vagina, Yes normal appearance of the cervix, Yes normal bimanual exam, Yes No adnexal tenderness and Yes no masses Back/Pelvis: COMMON NORMALS: no CVA tenderness, thoracic and lumbar spine normal to inspection, no thoracic nor lumbar tenderness, thoraco-lumbar ROM normal and straight leg raise negative bilaterally THORACIC SPINE/UPPER BACK: Yes normal to inspection LUMBAR SPINE/LOWER BACK: Yes normal to inspection Extremity: COMMON NORMALS: normal to inspection, full ROM, capillary refill normal, no joint enlargement, no clubbing, cyanosis or edema, no calf tenderness and no pedal edema GENERAL: Yes normal exam except as noted Neuro: COMMON NORMALS: patient oriented x3, CN's II-XII intact bilaterally, moves all extremities, no focal motor deficits, no sensory deficits noted, deep tendon reflexes 2+ bilaterally and gait normal SENSORIUM/ORIENTATION: Yes alert CRANIAL NERVES: Yes CN normal except as noted MOTOR EXAM: 5/5 motor strength present throughout DEEP TENDON REFLEXES: Right triceps reflex intensity grade: 2+, Left triceps reflex intensity grade: 2+, Rt Biceps (C5, C6): 2+, Left biceps reflex intensity grade: 2+, Right brachioradialis reflex intensity grade: 2+, Left brachioradialis reflex intensity grade: 2+, Right patellar reflex intensity grade: 2+, Left patellar reflex intensity grade: 2+, Right ankle reflex intensity grade: 2+ and Left ankle reflex intensity grade: 2+ PUPIL EXAM: Normal pupillary reactivity/response: bilateral, Dilated: bilateral, Pinpoint: bilateral, Mid position: bilateral, Sluggish: bilateral and Fixed/non-reactive: bilateral Psych: COMMON NORMALS: mental status grossly normal, Normal thought process present, cooperative, normal affect, speech normal, activity/motor behavior normal, denies hallucinations, denies homicidal ideation and denies suicidal ideation Skin: COMMON NORMALS: no rashes or lesions noted, no wounds, turgor normal, no jaundice, no petechiae and no mottling Data : 12/04/21 21:53 12/04/21 21:53 A&P Assessment and plan (1) Vitamin D deficiency: Status: Acute Plan Chest pain, query and STEMI. Will monitor patient on telemetry and checks her cardiac enzymes. TSH within normal lids. Check free T4, magnesium level. In the morning we will recheck EKG and check fasting lipid panel. Aspirin 81 Mill grams daily plus Lipitor 80 Mill grams by mouth daily at bedtime plus Nitropaste 1 inch every 6 hours plus metoprolol XL 50 Mill grams by mouth daily. If we see a further increase in troponin, I will change patient's Lovenox to weight-based dosing twice a day subcutaneous leak. Echo cardiac pending. Lexiscan pending. History of right breast lump. Patient will need repeat right mammogram and right breast ultrasound May 03, 2022 History of CVA Rheumatoid arthritis Fibromyalgia Peripheral vascular disease, status post right carotid endarterectomy. Aspirin 81 Mill grams daily plus Lipitor 80 Mill grams by mouth daily at bedtime [place] arthritis History of vitamin D deficiency Overactive bladder Coronary artery disease, status post [place]. Aspirin 81 Mill grams by mouth daily plus metoprolol XL 50 Mill grams by mouth daily plus Lipitor 80 Mill cans by mouth daily at bedtime Peptic ulcer disease Hyperlipidemia. Fasting lipid panel pending. Lipitor 80 Mill grams by mouth daily at bedtime Hypertension. Metoprolol XL 50 Mill grams by mouth daily plus Nitropaste 1 inch every 6 hours DVT Proflex is. Bilateral SCD Attestations Medical Necessity Statement*: The patient's hospitalization is medically necessary as witnessed by performance of this H&P. Anticipate discharge within 48 hours Coding Level of Care Code Acute [employer] for Stuart Martins Diagnoses Vitamin D deficiency E55.9
[2021-12-05 02:12] LABS: Magnesium 1.9 mg/dL (1.7-2.3)
[2021-12-05 02:19] LABS: Free T4 Free Thyroxine 1.33 ng/dL (0.82-1.77)
--- NOTE | 2021-12-05 02:35 | USCV_ITS ---
Michelle Mello Age: 71 Gender: F : 1950 Exam Date: 12/05/2021 06:49 Ordering Phys: Geri Rondon DO Technologist: Zak Brar [place] [facility] [place]: Chest pain BP: 173 / 101 HR: 56 Rhythm: Sinus Technical Quality: Adequate MEASUREMENTS (Male / Female) Normal Values 2D ECHO LV Diastolic Diameter PLAX 4.0 cm 4.2 - 5.9 / 3.9 - 5.3 cm LV Systolic Diameter PLAX 3.0 cm IVS Diastolic Thickness 0.8 cm 0.6 - 1.0 / 0.6 - 0.9 cm IVS Systolic Thickness 0.9 cm LVPW Diastolic Thickness 1.1 cm 0.6 - 1.0 / 0.6 - 0.9 cm LVPW Systolic Thickness 1.5 cm LVOT Diameter 2.0 cm LV Ejection Fraction 2D Teich 53.0 % LV Ejection Fraction MOD 2C 68.1 % LV Ejection Fraction 2C AL 70.4 % LA Diameter 3.1 cm LA Width 3.0 cm LA Height 3.9 cm RA Width 3.3 cm RA Height 3.9 cm Aorta at Sinotubular Diameter 1.9 cm M-MODE Aortic Annulus Diameter 2.3 cm LA Ao Ratio MM 1.4 MV E Point Septal Separation 0.3 cm DOPPLER AV Peak Velocity 162.0 cm/s LVOT Peak Velocity 90.0 cm/s AV Area Cont Eq vti 1.7 cm squared AV Area Cont Eq pk 1.8 cm squared MV Area PHT 3.9 cm squared Mitral E to A Ratio 0.7 MV E' Velocity 36.5 cm/s Mitral E to MV E' Ratio 9.6 Mitral E to LV E' Lateral Ratio 11.0 Mitral E to LV E' Septal Ratio 8.5 TR Peak Velocity 302.6 cm/s TR Peak Gradient 36.6 mmHg TR Mean Velocity 256.0 cm/s TR Mean Gradient 26.4 mmHg TR Velocity Time Integral 108.8 cm Right Atrial Pressure 3.0 mmHg Pulmonary Artery Systolic Pressu 39.6 mmHg RV Acceleration Time 0.1 s RV Ejection Time 0.3 s RV AcT/ET 0.4 FINDINGS Left Ventricle Normal left ventricular cavity size. Increased left ventricular wall thickness. Mildly decreased left ventricular systolic function. Left ventricular ejection fraction is estimated at 45 %. There is severe hypokinesis of mid anteroseptal, basal to mid inferoseptal, apical septal and apical prabhakar. Sigmoid septum. Grade I diastolic dysfunction (abnormal relaxation filling pattern), normal to mildly elevated filling pressures. Right Ventricle Normal right ventricular size and systolic function. Right ventricular systolic pressure 40 mmHg. Right Atrium Normal right atrial size. Left Atrium Moderately increased left atrial size. Mitral Valve Moderate mitral annular calcification. Moderately thickened mitral valve. No mitral valve stenosis. Mild mitral valve regurgitation. Aortic Valve Aortic valve not well visualized. No aortic valve stenosis. No aortic valve regurgitation. Tricuspid Valve Structurally normal tricuspid valve. Trace tricuspid valve regurgitation. Pulmonic Valve Pulmonic valve not well visualized. No pulmonary valve stenosis. Pericardium No pericardial effusion. Aorta Normal-sized aortic root. CONCLUSIONS 1. This is a technically difficult study. 2. Normal left ventricular cavity size. Increased left ventricular wall thickness. Mildly decreased left ventricular systolic function. Left ventricular ejection fraction is estimated at 45 %. There is severe hypokinesis of mid anteroseptal, basal to mid inferoseptal, apical septal and apical prabhakar. Grade I diastolic dysfunction (abnormal relaxation filling pattern), normal to mildly elevated filling pressures. 3. Mild pulmonary hypertension with pulmonary pressure estimated at 40 mmHg. 4. Moderately increased left atrial size. 5. Mild mitral valve regurgitation. 6. No prior similar studies to compare. Anais Jones MD (Electronically Signed) Final Date: 05 December 2021 15:18 S
[2021-12-05 02:40] LABS: Chol HDL Ratio 1.92 mg/dL (0.0-4.40); Cholesterol 119 mg/dL (0-200); HDL Cholesterol 62 mg/dL (60-100); LDL Cholesterol Calculated 47 mg/dL (50-129); LDL HDL Ratio 0.76 RATIO (0.00-3.22); Triglycerides 50 mg/dL (0-150)
[2021-12-05] MEDS: enoxaparin 40 mg/0.4 mL Syringe SUBCUT (03:00)
[2021-12-05] MEDS: atorvastatin 40 mg Tablet 80 MG PO ×2 (03:00→20:55)
[2021-12-05] MEDS: nitroglycerin 1 gm/inch oint Pkt 1 INCH TOPICAL ×4 (03:00→20:55)
--- NOTE | 2021-12-05 03:58 | ECG_ITS ---
[facility] Test Date: 2021-12-05 Pat Name: Michelle Mello Department: Room: 250 Gender: Female Lapper: : 1950 Requested By: Vaibhav Cortez Order Number: [id number] Rosa MD: Anais Jones M.D. Measurements Intervals [place] Rate: 53 P: 58 AL: 150 QRS: 11 QRSD: 101 T: 52 QT: 446 QTc: 421 Interpretive Statements SINUS BRADYCARDIA Compared to ECG 12/04/2021 22:57:27 Myocardial infarct finding no longer present Electronically Signed On 12-05-2021 8:40:49 HOSPITAL INTERNSHIP by Anais Jones M.D. [id number]
--- NOTE | 2021-12-05 06:00 | ECG_ITS ---
[facility] Test Date: 2021-12-05 Pat Name: Michelle Mello Department: Room: 250 Gender: Female Unit Clerk: : 1950 Requested By: Geri Rondon Order Number: [id number] Rosa MD: Anais Jones M.D. Measurements Intervals [place] Rate: 58 P: 60 NC: 141 QRS: 26 QRSD: 98 T: 56 QT: 442 QTc: 435 Interpretive Statements SINUS BRADYCARDIA Compared to ECG 12/05/2021 03:08:21 No significant changes Electronically Signed On 12-05-2021 8:39:05 COOK PRESSURE by Anais Jones M.D. [id number]
[2021-12-05 06:02] LABS: Troponin 5 6HR 63.64 ng/L (0-10)
[2021-12-05 06:56] LABS: Troponin 5 6HR Delta 13.64 ng/L (0-12)
[2021-12-05] MEDS: aspirin 81 mg EC Tablet PO (07:59)
--- NOTE | 2021-12-05 12:44 | PM.CONSULT ---
Providers/Reason For Consult Consulting Physician/Specialty*: Dr. Jones, Cardiology Reason for Consult*: Chest pain, elevated troponin Attending Physician: Pastor Garcia Primary Care Provider: Promise Salazar NP History of Present Illness History of Present Illness Michelle Mello is a 71 year old female with past medical history of coronary artery disease with history of [place] in distribution of LAD in past with normal coronaries by angiogram in May 2010 thought to be related to either thrombus or spasm with return of LV function to normal. She also has history of hypertension, dyslipidemia, gastroesophageal reflux disease, carotid vascular disease s/p right carotid endarterectomy, history of CVA status post left middle cerebral artery stroke, fibromyalgia and rheumatoid arthritis. She presented to the hospital yesterday with complaint of chest pain that started around 4:30 PM in the afternoon. She got the news that her daughter was in a bike accident. She lost her and bike accident and after that started having retrosternal chest discomfort. This persisted and she took her blood pressure with systolic being more than 200. She took 1 dose of clonidine but the pain did not ease up and hence she came to the ER for further evaluation. She she received nitroglycerin with relief of her symptoms. Since arrival she has been chest pain-free. EKG on arrival showed sinus bradycardia at 59 bpm with septal [place] of indeterminate age. Repeat EKG showed sinus bradycardia 58 bpm with poor anterior R wave progression. No URI or UTI-like symptoms. She has been vaccinated and has received a booster dose for COVID-19. Review of Systems General: Reports: 10 or more systems reviewed and unremarkable except in HPI and below Const: Denies: fever(s) or chills Card: Reports: chest pain; Denies: irregular heart rhythm or edema Resp: Denies: dyspnea, productive cough or non-productive cough : Denies: hematuria Neuro: Denies: headache(s), numbness in extremities, weakness in extremities or seizure-like activity Psych: Denies: anxiety or depression Jeffrey/Lymph: Denies: petechiae or purpura All/Imm: Denies: facial swelling Medications/Allergies Home Medications Medication Instructions Recorded Confirmed Last Taken Type aspirin 81 mg tablet,delayed 81 mg PO DAILY tab 10/10/19 12/05/21 12/20/19 History release (Adult Low Dose Aspirin) cholecalciferol (vitamin D3) 125 5,000 unit PO DAILY cap 10/10/19 12/05/21 12/20/19 History mcg (5,000 unit) capsule coenzyme Q10 100 mg capsule 100 mg PO DAILY cap 10/10/19 12/05/21 12/20/19 History cyclobenzaprine 10 mg tablet 10 mg PO PRN PRN 10/10/19 12/05/21 12/16/19 History hydrocortisone 0.5 % topical cream 1 applic TOPICAL BID PRN 10/10/19 12/05/21 12/20/19 History magnesium chloride 64 mg 64 mg PO DAILY tab 10/10/19 12/05/21 12/20/19 History (magnesium chloride) tablet,delayed release desoximetasone 0.05 % topical 1 applic TOPICAL TID #60 gm 12/06/19 12/05/21 12/20/19 Rx cream (Topicort) tramadol 50 mg tablet 50 mg PO TID PRN 07/18/20 12/05/21 Unknown History diclofenac sodium 1 % topical gel See Rx Instructions .ROUTE 12/22/20 12/05/21 Unknown Rx .COMPLEX #100 g lisinopril 40 mg tablet 40 mg PO DAILY #30 tab 04/08/21 12/05/21 Unknown Rx simvastatin 20 mg tablet See Rx Instructions .ROUTE 05/13/21 12/05/21 Unknown Rx .COMPLEX #90 tab lactulose 10 gram/15 mL oral See Rx Instructions .ROUTE 10/30/21 12/05/21 Unknown Rx solution (Constulose) .COMPLEX #237 ml conjugated estrogens 0.45 mg See Rx Instructions .ROUTE 11/15/21 12/05/21 Unknown Rx tablet (Premarin) .COMPLEX #90 tab clonidine HCl 0.1 mg tablet 0.1 mg PO DIRECTED PRN #45 tab 11/17/21 12/05/21 Unknown Rx potassium gluconate 595 mg (99 mg) 99 mg PO DAILY PRN tab 11/17/21 12/05/21 Unknown History tablet,extended release metoprolol succinate 50 mg See Rx Instructions .ROUTE 11/26/21 12/05/21 Unknown Rx tablet,extended release 24 hr .COMPLEX #90 tab oxybutynin chloride 10 mg See Rx Instructions .ROUTE 11/27/21 12/05/21 Unknown Rx tablet,extended release 24 hr .COMPLEX #90 tab mirabegron 50 mg tablet,extended See Rx Instructions .ROUTE 12/03/21 12/05/21 Unknown Rx release 24 hr (Myrbetriq) .COMPLEX #90 tab Allergies Allergy/AdvReac Type Severity Reaction Status Date / Time codeine Allergy Unknown Verified 12/05/21 09:15 Current Medications Generic Name Dose Route Start Last Admin Trade Name Vero PRN Reason Stop Dose Admin Aspirin 81 mg 12/05/21 09:00 12/05/21 07:59 Aspirin 81 Mg Ec Tablet PO 81 mg DAILY NAMITA Administration Enoxaparin Sodium 40 mg 12/05/21 02:35 12/05/21 03:00 Enoxaparin 40 Mg/0.4 Ml Syringe SUBCUT 40 mg Q24H NAMITA Administration Metoprolol Succinate 50 mg 12/05/21 09:00 12/05/21 08:00 Metoprolol Succinate Er (24 Hr) 50 Mg Tablet PO Not Given DAILY NAMITA Nitroglycerin 1 inch 12/05/21 02:35 12/05/21 07:59 Nitroglycerin 1 Gm/Inch Oint Pkt TOPICAL 1 inch Q6H NAMITA Administration PFSH Acute PFSH: Medical History (Updated 12/05/21 @ 16:42 by Anais Jones MD) CAD (coronary artery disease) Carotid stenosis CVA (cerebral vascular accident) Enrolled in chronic care management Epigastric pain Essential hypertension Fibromyalgia History of [place] (myocardial infarction) Hyperlipidemia Postmenopausal HRT (hormone replacement therapy) Rheumatoid arteritis Urinary tract infection Surgical History History of carotid endarterectomy r History of cholecystectomy History of hysterectomy History of shoulder surgery r History of thumb surgery bilat Social History Smoking and tobacco status: former smoker (6 months as teenager) Alcohol intake: never Marital status: History of recent travel: No Current gender identity: Female Vitals/I&O/Wt Last Vital Signs Temp 97.6 F 12/05/21 10:55 Pulse 64 12/05/21 10:55 Resp 16 12/05/21 10:55 BP 157/82 12/05/21 10:55 Pulse Ox 97 12/05/21 10:55 Weight last 48 hrs Weight 145 lb Physical Exam Narrative: GENERAL: Averagely built and averagely nourished in no acute distress HEENT: Extraocular movement intact. No pallor or icterus. NECK:No JVD. No carotid bruit. CARDIOVASCULAR SYSTEM: S1-S2 regular. No murmur rubs or gallops. RESPIRATORY SYSTEM: Chest clear to auscultation. No wheezes rhonchi or rubs heard. No use of accessory muscles. ABDOMEN: Soft, nontender and nondistended. Normal bowel sounds present. EXTREMITIES: No cyanosis or edema. No signs of chronic venous insufficiency. WHIPPER: Patient is alert oriented ?3. No focal neurological deficits. SKIN: Normal turgor and temperature. PSYCH: Normal insight and judgment. Data : 12/04/21 21:53 12/04/21 21:53 Other Labs: Baseline troponin T of 50 at 2 hours of 68 and at 6 are 63. NT proBNP 1008. Other data: Echocardiogram 05 December 2021 CONCLUSIONS ?1.? This is a technically difficult study. ?2. Normal left ventricular cavity size. Increased left ?ventricular wall thickness. Mildly decreased left ventricular ?systolic function. Left ventricular ejection fraction is ?estimated at 45 %. There is severe hypokinesis of mid ?anteroseptal, basal to mid inferoseptal, apical septal and ?apical prabhakar. ? Grade I diastolic dysfunction (abnormal ?relaxation filling pattern), normal to mildly elevated filling ?pressures. ?3.? Mild pulmonary hypertension with pulmonary pressure ?estimated at 40 mmHg. ?4.? Moderately increased left atrial size. ?5.? Mild mitral valve regurgitation. ?6.? No prior similar studies to compare. Carotid duplex 11 May 2021 CONCLUSIONS ?Minimal dense plaques at the bifurcations? and? proximal ?internal carotid arteries bilaterally suggesting less than 50% ?stenosis. ?Intimal thickening in the common carotid arteries bilaterally. ?No significant stenosis in the vertebral, subclavian and ?external carotid arteries bilaterally Coronary angiogram 01 June 2010 I. IMPRESSIONS: A. Normal coronary arteries. B. Left ventricular dysfunction. 1. Akinesis of the mid anterior wall. 2. Moderate to severe hypokinesis of the distal anterior wall apex and inferior apex. 3. Estimated ejection fraction 40% Echocardiogram 06 January 2011 I. IMPRESSIONS: A. Normal coronary arteries. B. Left ventricular dysfunction. 1. Akinesis of the mid anterior wall. 2. Moderate to severe hypokinesis of the distal anterior wall apex and inferior apex. 3. Estimated ejection fraction 40% A&P Assessment and plan (1) NSTEMI (non-ST elevated myocardial infarction): Symptoms of cardiac chest pain. Normal EKG with elevated troponin and regional wall motion abnormality on echocardiogram. -She will benefit from coronary angiogram. -Risks and benefits were discussed with the patient. Possible complications including risk of heart attack stroke and , coronary perforation, arrhythmia, cardiac tamponade in urgent CABG were discussed with the patient as well. Plan is to proceed for the procedure at the earliest. -Continue aspirin statin and start on therapeutic Lovenox. Status: Acute (2) Essential hypertension: Blood pressure elevated -I will start her on amlodipine and further changes based on blood pressure numbers. Status: Acute (3) Hyperlipidemia: Status: Acute Plan History of CVA Status post R carotid endarterectomy H/o [place] Thank you for allowing me to participate in patient's care. 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
--- NOTE | 2021-12-05 14:20 | PC.NURSE ---
Dr. Jones at bedside, gave v.o. to start home dose of oxybuntin, cath tomorrow so NPO after midnight
[2021-12-05] MEDS: enoxaparin 80 mg/0.8 mL Syringe 70 MG SUBCUT (14:34)
[2021-12-05] MEDS: amlodipine 5 mg Tablet PO (17:06)
--- NOTE | 2021-12-05 18:26 | PC.NURSE ---
Report called to CSU
--- NOTE | 2021-12-05 20:35 | PM.PN ---
Subjective Subjective: No chest pain, not short of breath. No nausea or vomiting. No heartburn. Denies musculoskeletal pain. No pain on inspiration. No cough. Vitals/I&O/Wt Last Vital Signs Temp 98.9 F 12/05/21 15:14 Pulse 66 12/05/21 15:14 Resp 16 12/05/21 15:14 BP 137/80 12/05/21 15:14 Pulse Ox 96 12/05/21 15:14 12/05/21 12/05/21 12/05/21 06:59 14:59 22:59 Intake Total 200 / 200 150 / 350 Output Total 200 / 200 Balance 0 / 0 150 / 150 Weight last 48 hrs Weight 65.771 kg Physical Exam Const: COMMON NORMALS: no acute distress and patient oriented x3 HENMT: COMMON NORMALS: oropharynx normal Neck/C-Spine: COMMON NORMALS: no JVD Resp: COMMON NORMALS: normal respiratory effort and clear to auscultation bilaterally AUSCULTATION: clear to auscultation bilaterally Cardio: COMMON NORMALS: no JVD, regular rhythm, S1 normal heart sound present, S2 normal heart sound present and No murmurs present (Cardio) RHYTHM: regular rhythm HEART SOUNDS: S1 normal heart sound present and S2 normal heart sound present GI: COMMON NORMALS: Normal to inspection, nondistended, normoactive bowel sounds present, Soft to palpation and non-tender PALPATION: Yes Soft to palpation Extremity: COMMON NORMALS: no joint enlargement and no pedal edema Neuro: COMMON NORMALS: patient oriented x3 and moves all extremities Skin: COMMON NORMALS: no rashes or lesions noted GENERAL SKIN EXAM: no rashes or lesions noted Data : 12/04/21 21:53 12/04/21 21:53 A&P Assessment and plan (1) NSTEMI (non-ST elevated myocardial infarction): Cardiology consultation obtained. Appreciate recommendations. TTE with noted EF 45%. Severe hypokinesis of mid anteroseptal, basal to mid inferoseptal, apical septal and apical prabhakar. Grade 1 diastolic dysfunction. Mild pulmonary hypertension, pulmonary pressure estimated 40 mmHg. Moderately increased left atrial size. Mild MVR. Given history, risk, echocardiogram findings additional assessment planned with coronary angiogram. Continue aspirin, statin, anticoagulation. Status: Acute Plan History of right breast lump. Patient will need repeat right mammogram and right breast ultrasound May 03, 2022 History of CVA Rheumatoid arthritis Fibromyalgia Peripheral vascular disease, status post right carotid endarterectomy. Aspirin 81 Mill grams daily plus Lipitor 80 Mill grams by mouth daily at bedtime [place] arthritis History of vitamin D deficiency Overactive bladder Coronary artery disease, status post NC. Aspirin 81 Mill grams by mouth daily plus metoprolol XL 50 Mill grams by mouth daily plus Lipitor 80 Mill cans by mouth daily at bedtime Peptic ulcer disease Hyperlipidemia. Fasting lipid panel pending. Lipitor 80 Mill grams by mouth daily at bedtime Hypertension. Metoprolol XL 50 Mill grams by mouth daily plus Nitropaste 1 inch every 6 hours DVT Proflex is. Bilateral SCD Attestations Medical Necessity Statement*: Requires admission of over 2 midnights for assessment management of NSTEMI with ischemic cardiomyopathy Coding Level of Care Code Acute Musculoskeletal Physiotherapist for félix Martins Diagnoses NSTEMI (non-ST elevated myocardial infarction) I21.4
[2021-12-06] VITALS (54 sets, daily range): BP systolic 98–173; BP diastolic 58–89; PULSE 62–100; RESP 13–26; TEMP 36.2–36.8; O2SAT 68–98
[2021-12-06 03:35] LABS: Basophils % 0.4 %; Eosinophils # 0.1 10^3/uL (0.0-0.8); Eosinophils % 2.2 %; Hematocrit 38.5 % (37.0-47.0); Hemoglobin 12.4 g/dL (11.5-15.3); Lymphocytes # 2.1 10^3/uL (0.8-4.8); Lymphocytes % 39.3 %; Mean Corpuscular HGB Conc 32.2 g/dL (30.0-36.0); Mean Corpuscular Hemoglobin 30.9 pg (28.0-34.0); Mean Platelet Volume 9.2 fL (7.4-10.4); Monocytes # 0.5 10^3/uL (0.2-0.9); Monocytes % 9.6 %; Neutrophils # 2.61 10^3/uL (1.8-7.7); Neutrophils % 48.3 %; Nucleated Red Blood Cells % 0 %; Platelet Count 167 10^3/cmm (130-400); Red Blood Count 4.01 10^6/uL (4.1-5.3); Red Cell Distribution Width 12.9 % (12.1-15.1); White Blood Count 5.4 10^3/uL (4.0-10.0)
[2021-12-06 03:50] LABS: Anion Gap 13.8 (5-19); Blood Urea Nitrogen 19 mg/dL (8-23); Calcium 8.6 mg/dL (8.5-10.5); Carbon Dioxide 26 mmol/L (22-29); Chloride 106 mmol/L (98-107); Creatinine Clr Calc Pharmacy 51.9655; Glucose 91 mg/dL (65-115); Osmolality Calculated 296 mOsm/kg (285-295); Potassium 3.8 mmol/L (3.5-5.1); Sodium 142 mmol/L (136-145)
[2021-12-06] MEDS: diphenhydrAMINE 50 mg Capsule PO (06:22)
[2021-12-06] MEDS: sodium chloride 0.9% 1,000 ML 50 ML IV (06:23)
--- NOTE | 2021-12-06 07:30 | XACV_ITS ---
Exam Room: 2 Ht: 163 cm Wt: 66 kg BSA: 1.73 m2 Gender: Female : 1950 Any Known Allergies: Codeine Exam Priority: Routine Procedure(s): Procedure Description: Diagnostic procedure Procedure Description: Left Heart Catheterization Procedure Description: Left ventriculography Procedure Description: Coronary Angiography Diagnostic Cath Status: Elective Diagnostic Findings * No disease noted in the Left Main, Left Anterior Descending, Right, or Circumflex coronary arteries. * Coronary angiography shows right dominance. Conclusions 1. Normal left ventricular systolic function. Ejection fraction of 50%. No regional wall motion abnormalities seen. 2. Stress cardiomyopathy with now recovered wall motion abnormality. 3. No disease noted in the Left Main, Left Anterior Descending, Right, or Circumflex coronary arteries. Recommendations * Continue aspirin. * Continue metoprolol and lisinopril. * Aggressive risk factor modification. * Outpatient cardiology follow-up in 1 to 2 weeks. Interventional RX Recommendation: medical therapy and/or counseling Diagnostic RX Recommendation: medical therapy and/or counseling Anticoagulation: Heparin Ventriculography Ejection Fraction: 50.0 % Pressures Phase:Rest AO : 136 / 79 ( 103 ) @ 8:23:00 AM 154 / 73 ( 107 ) @ 8:31:00 AM 149 / 75 ( 104 ) @ 8:31:00 AM LV : 152 / 6 / 11 @ 8:30:00 AM 156 / -8 / 14 @ 8:31:00 AM 164 / -9 / 13 @ 8:31:00 AM Valves Phase:DefaultPhase AV : 3.0 @ 8:39:52 AM AV Mean Gradient: 7.0 @ 8:39:52 AM Clinical Evaluation EBL: 5mL-10mL Procedural Details Procedure Consent Obtained. Pre-Procedure Time Out. Identified patient by full name and date of as verbalized by the patient/guarantor. Does the consent match the physician's order: Yes. Accurate & Complete Informed Consent: Yes. Inpatient/Outpatient History & Physical on Chart: Yes. If H&P is completed, is and addenduem needed: No. Visualize and Verify Site with Patient/Guarantor: N/A. Relevant Radiology Images available: Yes. The risks, benefits, and alternatives of sedation and/or procedure were discussed by physician. The patient agrees to continue. Procedure started. [facility] Clinical Fraility Score: 3: Managing Well. 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 Chest Pain Symptom Assessment: Typical Angina Symptoms. Cardiovascular Instability: No. Correct patient, site and procedure confirmed by cath team. Current diagnosis: NSTEMI. PERRLA. Strong, equal hand diagrammer and seamer bilaterally. Lungs clear x 5 lobes. IV Site on Arrival: 20 gauge in the left wrist. IV Fluids: 0.9% NaCl at KVO. 0 mL infused prior to ear mold laboratory technician. Pre Procedural Pulses: bilateral radial was 3+. Oxygen started at 2liters/min via nasal canula. right groin was prepped with chloroprep then draped in the usual sterile fashion. right radial was prepped with chloroprep then draped in the usual sterile fashion. Physician notified. Baseline sample Acquired. HR: 73 BPM. Equipment: 6F - Radial. Cardiac Cath Pack. ACIST Manifold Kit Model BT 2000. Heparinized Saline (2 units/mL), 1000 mL bag. Physician arrived. Physician scrubbed in. Immediate Pre-Procedure Time Out. Correct Patient: Yes; Correct Procedure: Yes; Correct Site: Yes; Correct Patient Position: Yes; Correct Supplies: Yes; Dried Flammable Prep: Yes; Blood Products Available: N/A;. Lidocaine 1% infiltrated to the right radial. Arterial access obtained. Patient's family unavailable. The patient states that she will call and update her daughter later this AM. Current Diagnosis : NSTEMI. A 5 lithuanian TIG catheter in over wire. Multiple views taken of left coronary artery. Catheter redirected to the RCA. Multiple views taken of right coronary artery. Catheter removed over the standard wire. A 5 lithuanian Angled Pig catheter in over wire. EDP Sample taken: LV 152/6,11; HR: 73 BPM; SpO2: 98%. LV gram performed in SALES @ 10 mL/second for a total of 30 mL. EDP Sample taken: LV 156/-9,14; HR: 80 BPM; SpO2: 98%. Pullback taken: LV 164/-10,13; AO 154/73(107); Mean: 7mmHg, Peak to Peak: 3mmHg, SEP: 24sec/min; HR: 86 BPM; SpO2: 98%. Catheter removed over the standard wire. Dr. Vila scrubbed out. TR band placed. Hemostasis obtained. Post Procedure: Pulses reassessed and unchanged. PERRLA. Strong, equal hand diagrammer and seamer bilaterally. No VTE prophylaxis required. Medication's Wasted: Lidocaine 1% = 18 mL. Medication's Wasted: Nitro = 49.8 mg. Medication's Wasted: Heparin = 1000 units. Total IV fluids: 28 mL. A TR Band was successful obtaining hemostatsis at the Right Radial artery insertion site. Post-op diagnosis: Non obstructive CAD. Complications: none. Estimated blood loss: 5mL-10mL. Responsiveness - Normal response to verbal stimuli; alert and oriented, PERRLA. Airway - Unaffected, no intervention required; spontaneous ventilation. Circulation: W/N/L, pulses unchanged. Nausea/Vomiting: No. Procedure completed. Patient transferred by wheelchair to 1st floor. Vital chart was stopped. Access Site Site: Right Radial artery Sheath Size: 6 Fr Hemostasis Method: TR Band Hemostasis Success: Successful Procedure Medications Start: 8:13 AM Stop: 8:13 AM Medication: Versed Amount: 1 mg Route: I.V. Start: 8:13 AM Stop: 8:13 AM Medication: Fentanyl Amount: 25 mcg Route: I.V. Start: 8:19 AM Stop: 8:19 AM Medication: Nitrogylcerin Amount: 200 mcg Route: I.A. Start: 8:19 AM Stop: 8:19 AM Medication: Versed Amount: 1 mg Route: I.V. Start: 8:23 AM Stop: 8:23 AM Medication: Heparin Amount: 5000 units Route: I.V. I, the attending physician, have reviewed and verified all procedure medications. Yes, all medications given per verbal order History/Risk Factors Hypertension: Yes Dyslipidemia: Yes Peripheral Arterial Disease (PAD): No Myocardial Infarction ([place]): Yes Obesity: No Renal Disease: No Prior Interventions PCI: No CABG: No Valve Surgery: No Report Signatures Finalized by Ten Vila MD on 12/06/2021 09:07 AM
--- NOTE | 2021-12-06 08:00 | W.PM.OPSUD ---
Surgery/Procedure H&P Update DATE OF PROCEDURE: December 06, 2021 DATE H&P PERFORMED: 12/05/21 H&P UPDATE INFORMATION: I have reviewed H&P completed within last 30 days, I have examined patient prior to procedure and No changes to prior documentation PREOP DIAGNOSIS: NSTEMI PRIMARY INDICATION FOR PROCEDURE: NSTEMI PLANNED PROCEDURE: Operation Date: 12/06/21 08:00 Proposed Procedures p Cardiac Catheterization - Ten Vila M.D Possible percutaneous coronary intervention PATIENT REASSESSED PRIOR TO SEDATION, WITH NO CHANGE NOTED: Yes PHYSICAL EXAM: alert, oriented x 3, clear to auscultation bilaterally and regular rate & rhythm AIRWAY EVAL/ANESTHESIA PLAN: normal airway, ASA III, Monitored Anesthesia, Local Anesthesia, Risks, benefits & alternatives of sedation and/or procedure discussed and Patient agrees to continue as planned ADDITIONAL INFORMATION: Left heart cath with possible percutaneous coronary intervention
--- NOTE | 2021-12-06 08:38 | PM.MISC ---
Miscellaneous Note Purpose of Documentation: Brief interventional cardiology procedure note Note: Non obstructive CAD LV gram shows normal LV systolic function. No regional wall motion abnormalities Stress cardiomyopathy Recommendations: Continue aspirin Continue lisinopril and metoprolol Outpatient cardiology follow up in 7-10 days
[2021-12-06] MEDS: metoprolol succinate ER (24 HR) 50 mg Tablet PO (09:25)
[2021-12-06] MEDS: amlodipine 5 mg Tablet PO (09:25)
[2021-12-06] MEDS: aspirin 325 mg Tablet PO (10:50)
[2021-12-06] MEDS: pantoprazole DR 40 mg Tablet PO (10:50)
[2021-12-06] MEDS: oxybutynin chloride XL 5 MG TABLET 10 MG PO (10:50)
--- NOTE | 2021-12-06 17:36 | PM.DCS ---
Discharge Providers Date of Admission: 12/05/21 00:51 Date of Discharge: December 06, 2021 Attending Provider at Admission: Geri Rondon DO Attending Provider at Discharge: Pastor Garcia Primary Care Provider: Promise Salazar NP Diagnoses at Discharge Discharge Diagnosis (1) NSTEMI (non-ST elevated myocardial infarction): Status: Acute Reason for Visit Reason for Visit: CP Hospital Course Hospital Course Pleasant 71-year-old lady with history of CAD, AK in distribution of LAD, current angiogram in 2009 noted with normal coronaries, HTN, HLD, GERD, carotid stenosis status post endarterectomy, CVA, fibromyalgia, RA, was assessed and managed in the hospital after presenting with chest discomfort, tightness, after receiving bad news. Noted hypertensive on presentation, to clonidine but without improvement. Remained chest pain-free in the hospital. Plan series on presentation with abnormality, baseline 50, with increased to 16.36 at 2 hours, 63.64 at 6 hours. Noted mild sinus bradycardia on EKG. Electrolytes within normal limits. Thyroid function normal. No evidence of infection. Additionally assessed with echocardiogram with finding of EF 45%, grade 1 diastolic dysfunction, severe hypokinesis of mid anteroseptal, basal, mid inferoseptal, apical septal and apical prabhakar. Mild pulmonary hypertension, PA pressure 40 mmHg, moderately increased left atrial size. Mild MVR. Underwent additional assessment by coronary geography due to findings and risk factors. Found to have nonobstructive coronary disease. With improvement in LV function, in the setting of stress/receiving bad news, symptoms and findings are likely due to stress-induced cardiomyopathy/Takotsubo as per discussion with cardiology. Please continue optimization of risk factors of cardiovascular disease. She reports her blood pressures have been difficult to manage in the past with multiple times, usually settled around 140/90. She is instructed to monitor blood pressures several times a day, write down values. Continue to optimize. Please also follow-up regarding right breast lump. Will need repeat right mammogram and right breast ultrasound May 03, 2022. Physical Exam Const: COMMON NORMALS: no acute distress and patient oriented x3 HENMT: COMMON NORMALS: oropharynx normal Neck/C-Spine: COMMON NORMALS: no JVD Resp: COMMON NORMALS: normal respiratory effort and clear to auscultation bilaterally AUSCULTATION: clear to auscultation bilaterally Cardio: COMMON NORMALS: no JVD, regular rhythm, S1 normal heart sound present, S2 normal heart sound present and No murmurs present (Cardio) RHYTHM: regular rhythm HEART SOUNDS: S1 normal heart sound present and S2 normal heart sound present GI: COMMON NORMALS: Normal to inspection, nondistended, normoactive bowel sounds present, Soft to palpation and non-tender PALPATION: Yes Soft to palpation Extremity: COMMON NORMALS: no joint enlargement and no pedal edema OTHER: Small hematoma proximal about 3.5 cm from right radial access. No pulsatile mass. She knows to seek medical attention in case of changes. 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 Laboratory Results WBC 5.4 10^3/uL (4.0-10.0) 12/06/21 02:54 RBC 4.01 10^6/uL (4.1-5.3) L 12/06/21 02:54 Hgb 12.4 g/dL (11.5-15.3) 12/06/21 02:54 Hct 38.5 % (37.0-47.0) 12/06/21 02:54 MCV 96.0 fl (81-99) 12/06/21 02:54 MCH 30.9 pg (28.0-34.0) 12/06/21 02:54 MCHC 32.2 g/dL (30.0-36.0) 12/06/21 02:54 RDW 12.9 % (12.1-15.1) 12/06/21 02:54 Plt Count 167 10^3/cmm (130-400) 12/06/21 02:54 MPV 9.2 fL (7.4-10.4) 12/06/21 02:54 Neut % (Auto) 48.3 % 12/06/21 02:54 Lymph % (Auto) 39.3 % 12/06/21 02:54 Culberson % (Auto) 9.6 % 12/06/21 02:54 Eos % (Auto) 2.2 % 12/06/21 02:54 Baso % (Auto) 0.4 % 12/06/21 02:54 Neut # (Auto) 2.61 10^3/uL (1.8-7.7) 12/06/21 02:54 Lymph # (Auto) 2.1 10^3/uL (0.8-4.8) 12/06/21 02:54 Culberson # (Auto) 0.5 10^3/uL (0.2-0.9) 12/06/21 02:54 Eos # (Auto) 0.1 10^3/uL (0.0-0.8) 12/06/21 02:54 Baso # (Auto) 0.0 10^3/uL (0.0-0.1) 12/06/21 02:54 Nucleated RBC % (auto) 0 % 12/06/21 02:54 Nucleated RBCs # 0.0 /100WBC 12/06/21 02:54 Sodium 142 mmol/L (136-145) 12/06/21 02:54 Potassium 3.8 mmol/L (3.5-5.1) 12/06/21 02:54 Chloride 106 mmol/L (98-107) 12/06/21 02:54 Carbon Dioxide 26 mmol/L (22-29) 12/06/21 02:54 Anion Gap 13.8 (5-19) 12/06/21 02:54 BUN 19 mg/dL (8-23) 12/06/21 02:54 Creatinine 0.9 mg/dL (0.5-0.9) 12/06/21 02:54 GFR Calculation Not Reportable 12/06/21 02:54 Glucose 91 mg/dL (65-115) 12/06/21 02:54 Calculated Osmolality 296 mOsm/kg (285-295) H 12/06/21 02:54 Calcium 8.6 mg/dL (8.5-10.5) 12/06/21 02:54 Magnesium 1.9 mg/dL (1.7-2.3) 12/04/21 21:53 Total Bilirubin 0.3 mg/dL (0.15-1.2) 12/04/21 21:53 AST 21 U/L (0-32) 12/04/21 21:53 ALT 9 U/L (0-33) 12/04/21 21:53 Alkaline Phosphatase 70 IU/L (35-105) 12/04/21 21:53 Troponin T Baseline 50 ng/L (0-10) H 12/04/21 21:53 Troponin T 120 Minute 68.36 ng/L (0-10) H 12/04/21 23:40 Delta Troponin T 18.36 ABS# (0-10) H* 12/04/21 23:40 Troponin T Hi Sens 6Hr 63.64 ng/L (0-10) H 12/05/21 04:15 Troponin T Hi Sens 6Hr Delta 13.64 ng/L (0-12) H* 12/05/21 04:15 NT-Pro-B Natriuret Pep 1008 pg/mL (0-125) H 12/04/21 21:53 Total Protein 6.2 g/dL (6.6-8.7) L 12/04/21 21:53 Albumin 3.6 g/dL (3.5-5.2) 12/04/21 21:53 Globulin 2.6 g/dL (1.3-4.6) 12/04/21 21:53 Triglycerides 50 mg/dL (0-150) 12/04/21 21:53 Cholesterol 119 mg/dL (0-200) 12/04/21 21:53 LDL Cholesterol, Calc 47 mg/dL (50-129) L 12/04/21 21:53 HDL Cholesterol 62 mg/dL (60-100) 12/04/21 21:53 LDL/HDL Ratio 0.76 RATIO (0.00-3.22) 12/04/21 21:53 Cholesterol/HDL Ratio 1.92 mg/dL (0.0-4.40) 03/04/22 21:53 Lipase 29 U/L (13-60) 12/04/21 21:53 Free T4 1.33 ng/dL (0.82-1.77) 12/04/21 21:53 Vitals Last Vital Signs Temp 97.2 F L 12/06/21 17:01 Pulse 69 12/06/21 17:01 Resp 18 12/06/21 17:01 BP 130/71 12/06/21 17:01 Pulse Ox 68 L 12/06/21 17:01 Discharge Plan Discharge Patient Disposition: Home Condition: Stable Prescriptions: New Lasix 20 mg tablet 20 mg PO DAILY PRN (Reason: edema) Qty: 90 0RF Continued cyclobenzaprine 10 mg tablet 10 mg PO PRN PRN (Reason: MUSCLE SPASMS) 0RF coenzyme Q10 100 mg capsule 100 mg PO DAILY 0RF cholecalciferol (vitamin D3) 5,000 unit capsule 5,000 unit PO DAILY 0RF hydrocortisone 0.5 % cream 1 applic TOPICAL BID PRN (Reason: Rash) 0RF magnesium chloride 64 mg tablet,delayed release (DR/EC) 64 mg PO DAILY 0RF aspirin [Adult Low Dose Aspirin] 81 mg tablet,delayed release (DR/EC) 81 mg PO DAILY 0RF potassium gluconate 595 mg (99 mg) tablet extended release 99 mg PO DAILY PRN (Reason: Cramps) 0RF tramadol 50 mg tablet 50 mg PO TID PRN (Reason: Pain) 0RF clonidine HCl 0.1 mg tablet 0.1 mg PO DIRECTED PRN (Reason: Increased Heart Rate) Qty: 45 3RF Myrbetriq 50 mg tablet extended release 24 hr See Rx Instructions .ROUTE .COMPLEX Qty: 90 3RF Dose Instruction: TAKE ONE TABLET BY MOUTH ONCE DAILY Rx Instructions: TAKE ONE TABLET BY MOUTH ONCE DAILY desoximetasone [Topicort] 0.05 % cream 1 applic TOPICAL TID Qty: 60 2RF diclofenac sodium 1 % gel See Rx Instructions .ROUTE .COMPLEX Qty: 100 0RF Dose Instruction: APPLY 2 GRAMS TOPICALLY 4 TIMES DAILY Rx Instructions: APPLY 2 GRAMS TOPICALLY 4 TIMES DAILY lisinopril 40 mg tablet 40 mg PO DAILY Qty: 30 11RF simvastatin 20 mg tablet See Rx Instructions .ROUTE .COMPLEX Qty: 90 3RF Dose Instruction: TAKE ONE TABLET BY MOUTH ONCE DAILY Rx Instructions: TAKE ONE TABLET BY MOUTH ONCE DAILY lactulose [Constulose] 10 gram/15 mL solution See Rx Instructions .ROUTE .COMPLEX Qty: 237 0RF Dose Instruction: TAKE 1 TABLESPOONFUL (15 ML) BY MOUTH ONCE DAILY NEEDED FOR CONSTIPATION Rx Instructions: TAKE 1 TABLESPOONFUL (15 ML) BY MOUTH ONCE DAILY NEEDED FOR CONSTIPATION Premarin 0.45 mg tablet See Rx Instructions .ROUTE .COMPLEX Qty: 90 0RF Dose Instruction: TAKE ONE TABLET BY MOUTH ONCE DAILY Rx Instructions: TAKE ONE TABLET BY MOUTH ONCE DAILY metoprolol succinate 50 mg tablet extended release 24 hr See Rx Instructions .ROUTE .COMPLEX Qty: 90 0RF Dose Instruction: TAKE ONE TABLET BY MOUTH ONCE DAILY Rx Instructions: TAKE ONE TABLET BY MOUTH ONCE DAILY oxybutynin chloride 10 mg tablet extended release 24hr See Rx Instructions .ROUTE .COMPLEX Qty: 90 0RF Dose Instruction: TAKE ONE TABLET BY MOUTH ONCE DAILY Rx Instructions: TAKE ONE TABLET BY MOUTH ONCE DAILY Discharge Orders: Discharge Order (Routine); Ordered 12/06/21 Ordered By: Pastor Garcia Referrals: Lorna Ferguson FNP [Nurse Practitioner] - 1 week ([facility] will contact you to schedule an follow-up appointment in 1 week. If you haven't heard from them by Tuesday. Please call ) Promise Salazar NP [Primary Care Provider] - 4-7 days ([facility] will contact you to schedule an follow-up appointment in 4 to 7 days. If you haven't heard from them by Tuesday. Please call ) Discharge Diet: Cardiac Discharge Activity: Limit activity as instructed Patient Instructions: Furosemide (By mouth) (Lasix), Heart Catheterization (DC), Chest Pain Stoplight, Opioid Safety, Post Angiogram Home Care Instructions Activity Restrictions/Additional Instructions: Please follow-up with your primary doctor and cardiology regarding stress-induced cardiomyopathy. Please continue to optimize risk factors of coronary disease. Monitor blood pressure closely twice daily, write down values to follow-up in office. Do not lift more than 3 pounds in the next 2 days. If you notice any swelling, bleeding, pulsatile mass in your right wrist, seek medical attention. Similarly if you experience chest pain or pressure, worsening shortness of breath, or other concerning symptoms seek medical attention. Take diuretic only in case of symptoms of lower extremity swelling, rapid weight gain, shortness of breath lying flat, and other symptoms of fluid overload. Discharge Attestations Time Spent in Discharge Care*: greater than 30 min Quality Metrics Clinical Quality Measures [ Acute Myocardial Infaction { Clinical Trial Participant: No; Contraindication to aspirin: None; Aspirin prescribed; Contraindication to statin: None; Statin prescribed; Contraindication to PCI: Intervention not indicated;}. No reported AMI, CVA or VTE this stay] Coding Level of Care Code Acute [facility] note Diagnoses NSTEMI (non-ST elevated myocardial infarction) I21.4
--- NOTE | 2021-12-06 18:53 | PC.NURSE ---
Around 1500: TR Band Removed. No drainage noted to site, dime sized hematoma noted superior to the incision site. Notified Dr. Vila, Supervisor [employer]. Orders received to monitor site. Vitals stable. Site cleansed with soap and water, band-aid applied over incision site. Patient tolerated well. Around 1600: Assess hematoma, no change vitals stable. Will continue to monitor.
--- NOTE | 2021-12-06 19:02 | PC.NURSE ---
Discharge Note Patient discharged to home via private vehicle accompanied by family member. All lines removed. No change in size of hematoma to right wrist region. Discharge instructions reviewed with patient and/or pharmacy sales representative. Mobile pharmacy medications and/or prescriptions provided. Belongings/home medications returned.
== END 2021-12-06 17:20 | disposition home or self-care (01) ==
LOC: ER 12-05 00:43 → MEDSURG 12-05 01:35 → CSU 12-05 19:43
PROVIDERS: Emergency Medicine; Internal Medicine; Internal Medicine Cardiovascular Disease; Admitting Provider Internal Medicine; Emergency Provider Emergency Medicine; PCP Nurse Practitioner Family; Visit Provider Internal Medicine
DX: I21.4 Non-ST elevation (NSTEMI) myocardial infarction (principal); E55.9 Vitamin D deficiency, unspecified; Z79.82 Long term (current) use of aspirin; I25.10 Atherosclerotic heart disease of native coronary artery without angina pectoris; I10 Essential (primary) hypertension; I25.2 Old myocardial infarction; M79.7 Fibromyalgia; E78.5 Hyperlipidemia, unspecified; Z87.891 Personal history of nicotine dependence; M06.9 Rheumatoid arthritis, unspecified; I73.9 Peripheral vascular disease, unspecified; Z87.11 Personal history of peptic ulcer disease
CPT/HCPCS: 36415; 71045; 80048; 80053; 80061; 83690; 83735; 83880; 84439; 84484; 85025; 93005; 93306; 93452; 93458; 96372; 99285; C1769; C1887; C1894; G0378; J1644; J1650; J2250; J3010; J3490; J7030; Q0163; Q9967

== ENCOUNTER → 2021-12-22 10:09 | Outpatient (BNVA) | payer MEDICARE, MEDICAID, SELFPAY | PROVIDERS: PCP Nurse Practitioner Family; Visit Provider Nurse Practitioner Family | DX: I25.10 Atherosclerotic heart disease of native coronary artery without angina pectoris (principal); I51.81 Takotsubo syndrome | CPT/HCPCS: 80048; 99214 ==

== ENCOUNTER → 2022-02-04 12:17 | Outpatient (BNVA) | payer MEDICARE, MEDICAID, SELFPAY | PROVIDERS: PCP Nurse Practitioner Family; Visit Provider Internal Medicine Cardiovascular Disease | DX: I65.29 Occlusion and stenosis of unspecified carotid artery (principal); I11.9 Hypertensive heart disease without heart failure; I63.9 Cerebral infarction, unspecified; Z79.899 Other long term (current) drug therapy | CPT/HCPCS: 99213; 99214 ==

== ENCOUNTER → 2022-03-29 13:07 | Outpatient (BNVA) | payer MEDICARE, MEDICAID, SELFPAY | PROVIDERS: PCP Nurse Practitioner Family; Visit Provider Internal Medicine Cardiovascular Disease | DX: I51.81 Takotsubo syndrome (principal); I10 Essential (primary) hypertension; I25.2 Old myocardial infarction; Z79.899 Other long term (current) drug therapy; I65.29 Occlusion and stenosis of unspecified carotid artery; Z86.73 Personal history of transient ischemic attack (TIA), and cerebral infarction without residual deficits; I25.10 Atherosclerotic heart disease of native coronary artery without angina pectoris | CPT/HCPCS: 99214 ==

== ENCOUNTER 2022-04-30 10:59 | Outpatient (CLI) | payer MEDICARE, MEDICAID, SELFPAY ==
--- NOTE | 2022-04-30 11:13 | MM_ITS ---
WS: [id number] ADDITIONAL VIEWS RIGHT MAMMOGRAM WITH DIGITAL BREAST TOMOSYNTHESIS. RIGHT BREAST ULTRASOUND HISTORY: R92.8 - Other abnormal and inconclusive findings on prior mammogram. COMPARISON: 11/03/2021, 10/12/2021 and 05/19/2020 RIGHT MAMMOGRAM: Spot compression views and true ML with digital breast tomosynthesis and SM. Very dense fibroglandular tissue in the anterior breast. No interval change. Tubular structures are p robably all ducts. The remaining breast is stable. Ultrasound to follow. RIGHT BREAST ULTRASOUND 2-D and color Doppler imaging submitted. Ultrasound posterior to the RIGHT nipple demonstrates a mildly dilated duct. Within the duct there is a soft tissue nodule measuring 5 x 4 x 4 mm without increased vascularity. This may be a small papil rima. This papilloma was seen on the prior examination. Mild debris in the duct from ectasia. MM/[place] [id number] IMPRESSION: BI-RADS: 4-Suspicious Finding-Biopsy Should Be Considered FOLLOW UP: Biopsy Recommended 1. Again noted is a 5 mm intraductal nodule in the RIGHT breast posterior to t he nipple. This is probably a small papilloma. The confirm diagnosis ultrasound -guided biopsy can be performed. No change since the prior examination of 022.
== END 2022-04-30 11:00 | disposition home or self-care (01) ==
PROVIDERS: PCP Nurse Practitioner Family; Visit Provider Nurse Practitioner Family
DX: R92.8 Other abnormal and inconclusive findings on diagnostic imaging of breast (principal)
CPT/HCPCS: 76642; 77061

== ENCOUNTER 2022-05-07 09:41 | Outpatient (CLI) | payer MEDICARE, MEDICAID, SELFPAY ==
--- NOTE | 2022-05-07 10:00 | CT_ITS ---
WS: [id number] CT scan of the head, 05/07/2022 Clinical Data: R51.9 - Headache, unspecified Comparison: CT head, 02/03/2018. DLP: 1005.[address] scans at [facility] use at least one of these dose optimization techniques: automated e xposure control; mA and/or kV adjustment per patient size (includes targeted exams where dose is matc hed to clinical indication); or iterative reconstruction. Findings: The ventricular system is slightly enlarged without shift. No recent infarct or hemorrhage is seen. T here are no abnormal intracerebral masses. There are chronic white matter changes. The cerebellum and brainstem are not remarkable. Bony windows of the skull and skull base show no fractures or erosions. The mastoid air cells, actuarial internship al auditory canals, sella turcica, intraorbital contents, and paranasal sinuses are unremarkable. CT/CT head wo con* [id number] Impression: 1. Chronic white matter changes consistent with probable small vessel ischemic disease. 2. No change in mild cerebral atrophy.
== END 2022-05-07 09:42 | disposition home or self-care (01) ==
LOC: RAD 09:43
PROVIDERS: PCP Nurse Practitioner Family; Visit Provider Nurse Practitioner Family
DX: R51.9 Headache, unspecified (principal)
CPT/HCPCS: 70450

== ENCOUNTER 2022-05-07 09:42 | Outpatient (CLI) | payer MEDICARE, MEDICAID, SELFPAY ==
--- NOTE | 2022-05-07 11:00 | USCV_ITS ---
Michelle Mello Age: 72 Gender: F : 1950 Exam Date: 05/07/2022 10:23 Ordering Phys: Anoop Mane MD ([email or web address]) Technologist: Susan Michael Exam Location: [place] Indication: sob BP: 130 / 78 HR: 56 Rhythm: Sinus Technical Quality: Adequate MEASUREMENTS (Male / Female) Normal Values 2D ECHO LV Diastolic Diameter PLAX 3.0 cm 4.2 - 5.9 / 3.9 - 5.3 cm LV Systolic Diameter PLAX 2.1 cm IVS Diastolic Thickness 1.5 cm 0.6 - 1.0 / 0.6 - 0.9 cm IVS Systolic Thickness 1.8 cm LVPW Diastolic Thickness 1.1 cm 0.6 - 1.0 / 0.6 - 0.9 cm LVPW Systolic Thickness 1.7 cm LVOT Diameter 2.0 cm LV Ejection Fraction 2D Teich 56.3 % LV Ejection Fraction MOD 2C 73.4 % LV Ejection Fraction 2C AL 75.1 % LA Diameter 3.5 cm LA Width 3.6 cm LA Height 5.0 cm RA Width 4.0 cm RA Height 4.2 cm Aorta at Sinotubular Diameter 3.3 cm IVC Diameter 1.4 cm M-MODE MV E Point Septal Separation 0.2 cm DOPPLER AV Peak Velocity 127.0 cm/s LVOT Peak Velocity 88.0 cm/s AV Area Cont Eq vti 2.0 cm squared AV Area Cont Eq pk 2.2 cm squared MV Peak Velocity 95.0 cm/s MV Area PHT 3.6 cm squared Mitral E to A Ratio 0.8 MV E' Velocity 42.0 cm/s Mitral E to MV E' Ratio 11.7 Mitral E to LV E' Lateral Ratio 10.0 Mitral E to LV E' Septal Ratio 14.1 TR Peak Velocity 182.0 cm/s TR Peak Gradient 13.2 mmHg Right Atrial Pressure 3.0 mmHg Pulmonary Artery Systolic Pressu 16.2 mmHg PV Peak Velocity 51.0 cm/s RV Acceleration Time 0.2 s RV Ejection Time 0.4 s RV AcT/ET 0.6 FINDINGS Left Ventricle Normal left ventricular size, systolic function and wall thickness, with no regional wall motion abnormalities. Grade I/IV diastolic dysfunction (abnormal relaxation filling pattern), normal to mildly elevated filling pressures. Left ventricular ejection fraction is estimated at 65 %. Right Ventricle Normal right ventricular size and systolic function. Normal right ventricular systolic pressure. Right Atrium The right atrium is normal in size. Left Atrium The left atrium is normal in size. Mitral Valve Structurally normal mitral valve without significant stenosis or prolapse. There is no mitral regurgitation. Aortic Valve Structurally normal aortic valve without significant sclerosis or stenosis. There is no aortic regurgitation. Tricuspid Valve Structurally normal tricuspid valve. Trace to mild tricuspid valve regurgitation. Pulmonic Valve Pulmonic valve not well visualized. Pericardium Normal pericardium without effusion. Aorta Normal ascending aorta dimension. IVC The inferior vena cava pulmonary and hepatic veins appear normal. CONCLUSIONS Normal left ventricular size, systolic function and wall thickness, with no regional wall motion abnormalities. Grade I/IV diastolic dysfunction (abnormal relaxation filling pattern), normal to mildly elevated filling pressures. Left ventricular ejection fraction is estimated at 65 %. Dr. Anoop Mane MD (Electronically Signed) Final Date: 08 May 2022 08:41 S
== END 2022-05-07 09:43 | disposition home or self-care (01) ==
LOC: RAD 09:43
PROVIDERS: PCP Nurse Practitioner Family; Visit Provider Internal Medicine Cardiovascular Disease
DX: R06.02 Shortness of breath (principal); I51.81 Takotsubo syndrome
CPT/HCPCS: 93306

== ENCOUNTER 2022-06-09 09:30 | Outpatient (CLI) | payer MEDICARE, MEDICAID, SELFPAY ==
--- NOTE | 2022-06-09 10:00 | USCV_ITS ---
Michelle Mello Age: 72 Gender: F : 1950 Exam Date: 06/09/2022 09:58 Ordering Phys: Maury Geiger MD (Andy) ([email or web address] Technologist: Osiris Luna Exam Location: [facility] [place] Indication: Recheck Rt CEA Risk Factors: Unknown Previous Vascular Surgery: R CEA Right Brachial BP: / Left Brachial BP: / Right Left Velocity (cm/s) Spectral Plaque Velocity (cm/s) Spectral Plaque Syst/Diast Broadening Syst/Diast Broadening 67.30/ 16.50 Prox CCA 59.00 / 15.50 70.60/ 24.30 Mid CCA 55.20 / 11.70 81.60/ 24.30 Distal CCA 61.40 / 17.90 66.85/ 21.15 Prox ICA 56.70 / 19.40 81.20/ 23.90 Mid ICA 60.60 / 24.90 88.00/ 32.50 Distal ICA 66.80 / 22.50 90.40 ECA 66.80 1.25 ICA/CCA 1.21 Antegrade Vertebral Antegrade 46.10/ 16.20 cm/s 40.40/ 15.50 cm/s Bi Subclavian Tri 71.80 111.4 0 CONCLUSIONS Right ICA stenosis <50%. Mild atheromatous plaque right carotid bulb/ICA. Left ICA stenosis <50%. Mild atheromatous plaque left carotid bulb/ICA. Normal antegrade Doppler flow noted in the right vertebral artery. Normal antegrade Doppler flow noted in the left vertebral artery. Ata Meadows MD (Electronically Signed) Final Date: 09 June 2022 10:46 S
== END 2022-06-09 09:31 | disposition home or self-care (01) ==
LOC: RAD 09:31
PROVIDERS: PCP Nurse Practitioner Family; Visit Provider Thoracic Surgery (Cardiothoracic Vascular Surgery)
DX: I65.23 Occlusion and stenosis of bilateral carotid arteries (principal)
CPT/HCPCS: 93880

== ENCOUNTER → 2022-06-22 12:55 | Outpatient (BNVA) | payer MEDICARE, MEDICAID, SELFPAY | PROVIDERS: PCP Nurse Practitioner Family; Visit Provider Thoracic Surgery (Cardiothoracic Vascular Surgery) | DX: Z98.890 Other specified postprocedural states (principal) | CPT/HCPCS: 99213 ==

== ENCOUNTER → 2022-07-14 11:18 | Outpatient (BNVA) | payer MEDICARE, MEDICAID, SELFPAY | PROVIDERS: PCP Nurse Practitioner Family; Visit Provider Nurse Practitioner Family | DX: R26.89 Other abnormalities of gait and mobility (principal); R42 Dizziness and giddiness; Z23 Encounter for immunization; L98.9 Disorder of the skin and subcutaneous tissue, unspecified | CPT/HCPCS: 81000 ==

== ENCOUNTER → 2022-08-12 12:39 | Outpatient (BNVA) | payer MEDICARE, MEDICAID, SELFPAY | PROVIDERS: PCP Nurse Practitioner Family; Visit Provider Internal Medicine Cardiovascular Disease | DX: I25.10 Atherosclerotic heart disease of native coronary artery without angina pectoris (principal); Z98.890 Other specified postprocedural states; I51.81 Takotsubo syndrome; I10 Essential (primary) hypertension; Z79.899 Other long term (current) drug therapy; I65.29 Occlusion and stenosis of unspecified carotid artery; M79.7 Fibromyalgia; Z86.73 Personal history of transient ischemic attack (TIA), and cerebral infarction without residual deficits; I25.2 Old myocardial infarction | CPT/HCPCS: 99213; 99214 ==

== ENCOUNTER → 2022-10-13 08:51 | Outpatient (BNVA) | payer MEDICARE, MEDICAID, SELFPAY | PROVIDERS: PCP Nurse Practitioner Family; Visit Provider Nurse Practitioner Family | DX: I10 Essential (primary) hypertension (principal) | CPT/HCPCS: 80053; 80061; 84443 ==

== ENCOUNTER → 2023-05-26 09:38 | Outpatient (BNVA) | payer MEDICARE, MEDICAID, SELFPAY | PROVIDERS: PCP Nurse Practitioner Family; Visit Provider Nurse Practitioner Family | DX: R30.9 Painful micturition, unspecified (principal); R03.0 Elevated blood-pressure reading, without diagnosis of hypertension; R32 Unspecified urinary incontinence; I10 Essential (primary) hypertension | CPT/HCPCS: 81000 ==

== ENCOUNTER 2023-07-07 10:03 | Outpatient (CLI) | payer MEDICARE, MEDICAID, SELFPAY ==
--- NOTE | 2023-07-07 11:15 | USCV_ITS ---
Michelle Mello Age: 73 Gender: F : 1950 Exam Date: 07/07/2023 10:14 Ordering Phys: Maury Geiger MD (Andy) [email or web address] [place] Technologist: Thomas Morelos Exam Location: [facility] [place] Indication: hx of rt side endart Risk Factors: Previous Vascular Surgery: Right Brachial BP: / Left Brachial BP: / Right Left Velocity (cm/s) Spectral Plaque Velocity (cm/s) Spectral Plaque Syst/Diast Broadening Syst/Diast Broadening 41.20/ 7.80 Prox CCA 45.10 / 10.90 62.10/ 10.90 Mid CCA 52.80 / 11.70 54.40/ 11.70 Distal CCA 50.00 / 12.00 87.80/ 8.50 Prox ICA 71.50 / 19.40 82.30/ 16.30 Mid ICA 59.80 / 11.70 98.70/ 21.80 Distal ICA 55.95 / 14.80 104.90 ECA 63.70 1.59 ICA/CCA 1.35 Antegrade Vertebral 57.50/ 17.10 cm/s 51.30/ 6.20 cm/s Bi Subclavian Bi 55.90 FINDINGS comp 2021 CONCLUSIONS Right ICA stenosis <50%. Prior right CEA. Mild atheromatous plaque right carotid bulb/ICA. Left ICA stenosis <50%. Mild atheromatous plaque left carotid bulb/ICA. Normal antegrade Doppler flow noted in the right vertebral artery. Poor flow left vertebral artery likely stenotic Ata Meadows MD (Electronically Signed) Final Date: 07 July 2023 13:35 S
== END 2023-07-07 10:04 | disposition home or self-care (01) ==
PROVIDERS: PCP Nurse Practitioner Family; Visit Provider Thoracic Surgery (Cardiothoracic Vascular Surgery)
DX: I65.23 Occlusion and stenosis of bilateral carotid arteries (principal); Z98.890 Other specified postprocedural states
CPT/HCPCS: 93880

== ENCOUNTER → 2023-08-04 11:12 | Outpatient (BNVA) | payer MEDICARE, MEDICAID, SELFPAY | PROVIDERS: PCP Nurse Practitioner Family; Visit Provider Internal Medicine | DX: I10 Essential (primary) hypertension (principal); Z98.890 Other specified postprocedural states; E78.5 Hyperlipidemia, unspecified; I25.10 Atherosclerotic heart disease of native coronary artery without angina pectoris; Z86.73 Personal history of transient ischemic attack (TIA), and cerebral infarction without residual deficits | CPT/HCPCS: 99213; 99214 ==

== ENCOUNTER → 2023-09-08 14:19 | Outpatient (BNVA) | payer MEDICARE, MEDICAID, SELFPAY | PROVIDERS: PCP Nurse Practitioner Family; Visit Provider Internal Medicine | DX: I10 Essential (primary) hypertension (principal); Z98.890 Other specified postprocedural states; E78.5 Hyperlipidemia, unspecified; I25.10 Atherosclerotic heart disease of native coronary artery without angina pectoris; Z86.73 Personal history of transient ischemic attack (TIA), and cerebral infarction without residual deficits | CPT/HCPCS: 99214 ==

== ENCOUNTER → 2023-09-12 14:31 | Outpatient (BNVA) | payer MEDICARE, MEDICAID, SELFPAY | PROVIDERS: PCP Nurse Practitioner Family; Visit Provider Surgery | DX: K27.9 Peptic ulcer, site unspecified, unspecified as acute or chronic, without hemorrhage or perforation (principal); K27.1 Acute peptic ulcer, site unspecified, with perforation; Z80.8 Family history of malignant neoplasm of other organs or systems; L82.1 Other seborrheic keratosis; Z90.49 Acquired absence of other specified parts of digestive tract; L72.0 Epidermal cyst; R10.13 Epigastric pain; L82.0 Inflamed seborrheic keratosis; I83.93 Asymptomatic varicose veins of bilateral lower extremities | CPT/HCPCS: 17110; 99204; 99213 ==

== ENCOUNTER 2023-10-06 08:29 | Day surgery (SDC) | payer MEDICARE, MEDICAID, SELFPAY ==
--- NOTE | 2023-10-06 08:13 | W.PM.OPSUD ---
Surgery/Procedure H&P Update DATE OF PROCEDURE: October 06, 2023 DATE H&P PERFORMED: 09/12/23 H&P UPDATE INFORMATION: I have reviewed H&P completed within last 30 days, I have examined patient prior to procedure, No changes to prior documentation and H&P is in [facility] [place] EMR on date indicated PLANNED PROCEDURE: Operation Date: 10/06/23 09:30 Proposed Procedures p EGD(Not Applicable) - Chuck Prasad MD
[2023-10-06 08:49] VITALS: BP 178/94; PULSE 59; RESP 18; TEMP 36.2; O2SAT 98; BMI 27.1
--- NOTE | 2023-10-06 09:01 | P.ANESUD_ITS ---
Pre-Anesthetic Update Pre-Anesthetic Assessment: Date of Surgery/Procedure: 10/06/23 Preop Stacia gnosis: peptic ulcer Proposed Procedure: Operation Date: 10/06/23 09:30 Proposed Procedures p EGD(Not Applicable) - Chuck Prasad MD Exam: Pre-Anes Outpt Exam: alert and oriented x 3 Cardiac Studies: Echocardiogram 05/07/22 Cardiac Event Monitor 08/04/23
--- NOTE | 2023-10-06 09:04 | ANES.PREANE2 ---
Pre-Anesthetic Assessment Height/Weight: Height 1.65 m Weight 73.936 kg Temp Pulse Resp BP Pulse Ox O2 Del Method 97.2 F L 59 L 18 178/94 98 Room Air 10/06/23 08:49 10/06/23 08:49 10/06/23 08:49 10/06/23 08:49 10/06/23 08:49 10/06/23 08:49 Preop Diagnosis: peptic ulcer Operation Date: 10/06/23 09:30 Proposed Procedures p EGD(Not Applicable) - Chuck Prasad MD Was Beta Day taken within 24 hours: Yes Was Clonidine taken within 24 hours: N/A Last intake: Intake Last Liquid Date 10/05/23 Last Liquid Time 20:30 Last Solid Date 10/05/23 Last Solid Time 20:30 Social No tobacco Exam alert and oriented x 3 Airway Submandibular: within normal limits Cervical ROM: within normal limits Mallampati: Class I Dentition: false History/ROS No significant history except as noted Pulmonary None reported CV/HEM Congestive Heart Failure (on lasix; patient doesn't take it), Hypertension and Myocardial Infarction (2022) None reported Hepatic None reported GI Gastroesophageal Reflux Disease Metabolic None reported Musc/skel Rheumatoid Arthritis Neuropsych Cerebrovascular Accident (2019 was last one; history of 2 CVAs) Anesthetic Plan ASA status: 3 Anesthesia: MAC Risk of > 500 ml blood loss (7ml/kg in children): No Medications/Allergies Home Medications Medication Instructions Recorded Confirmed Last Taken Type aspirin 81 mg tablet,delayed 81 mg PO DAILY 10/10/19 10/06/23 10/05/23 History release (Adult Low Dose Aspirin) cholecalciferol (vitamin D3) 125 5,000 unit PO DAILY 10/10/19 10/06/23 10/05/23 History mcg (5,000 unit) capsule hydrocortisone 0.5 % topical cream 1 applic topical BID PRN Rash 10/10/19 10/06/23 12/20/19 History potassium gluconate 595 mg (99 mg) 99 mg PO DAILY PRN Cramps 11/17/21 10/04/23 Unknown History tablet,extended release desoximetasone 0.05 % topical 1 applic topical TID PRN Outbreak 02/04/22 10/06/23 Unknown History cream (Topicort) cyclobenzaprine 10 mg tablet 10 mg PO BID PRN MUSCLE SPASMS #30 01/17/23 10/04/23 Unknown Rx tabs nitroglycerin 0.4 mg sublingual See Rx Instructions .Route 03/21/23 10/04/23 Unknown Rx tablet .COMPLEX #25 tabs lisinopril 40 mg tablet 40 mg PO DAILY #90 tabs 07/01/23 10/06/23 10/05/23 Rx biotin 10,000 mcg capsule 10,000 mcg PO DAILY 10/04/23 10/06/23 10/05/23 History clonidine HCl 0.1 mg tablet 0.1 mg PO BID PRN Increased Heart 10/04/23 10/06/23 Unknown History Rate coQ10 (ubiquinol) 200 mg capsule 200 mg PO DAILY 10/04/23 10/06/23 10/05/23 History conjugated estrogens 0.45 mg 0.45 mg PO DAILY 10/04/23 10/06/23 10/05/23 History tablet (Premarin) diclofenac sodium 1 % topical gel 1 ea topical QID PRN Pain 10/04/23 10/04/23 Unknown History furosemide 20 mg tablet 20 mg PO DAILY PRN Edema 10/04/23 10/04/23 Unknown History garlic 1,000 mg capsule 1,000 mg PO DAILY 10/04/23 10/06/23 10/05/23 History lactulose 10 gram/15 mL oral 15 ml PO DAILY PRN Constipation 10/04/23 10/06/23 Unknown History solution (Constulose) uam-G2-Jg-ann marie-malic acid tablet 1 tab PO DAILY 10/04/23 10/06/23 10/05/23 History magnesium oxide,aspartate,citr 400 mg PO DAILY 10/04/23 10/06/23 10/05/23 History metoprolol succinate 50 mg 50 mg PO DAILY 10/04/23 10/06/23 10/05/23 History tablet,extended release 24 hr mirabegron 50 mg tablet,extended 50 mg PO DAILY 10/04/23 10/06/23 10/05/23 History release 24 hr (Myrbetriq) nitrofurantoin 50 mg capsule 50 mg PO DAILY 10/04/23 10/06/23 10/05/23 History oxybutynin chloride 10 mg 10 mg PO DAILY 10/04/23 10/06/23 10/05/23 History tablet,extended release 24 hr simvastatin 20 mg tablet 20 mg PO DAILY 10/04/23 10/06/23 10/05/23 History vitamin E 400 unit tablet 400 unit PO DAILY 10/04/23 10/06/23 10/05/23 History Allergies Allergy/AdvReac Type Severity Reaction Status Date / Time codeine Allergy Unknown Verified 09/12/23 14:50 [facility] Anesthesia Medical History (Updated 09/29/23 @ 09:28 by Promise Salazar NP) Vitamin D deficiency Carotid stenosis Enrolled in chronic care management Epigastric pain Postmenopausal HRT (hormone replacement therapy) CAD (coronary artery disease) History of DC (myocardial infarction) Rheumatoid arteritis Hyperlipidemia CVA (cerebral vascular accident) Fibromyalgia Essential hypertension Urinary tract infection Surgical History (Updated 09/12/23 @ 14:51 by MARIO Bowie) History of cholecystectomy History of shoulder surgery r History of thumb surgery bilat History of hysterectomy History of carotid endarterectomy Social History Smoking and tobacco/nicotine status: never used tobacco/nicotine Alcohol intake: never Substance/Drug Use: never Marital status: Current gender identity: Female Data Anesthesia Cardiac Studies: Echocardiogram 05/07/22 Cardiac Event Monitor 08/04/23
[2023-10-06] MEDS: sodium chloride 0.9% 1,000 ML 30 ML IV (09:07)
[2023-10-06 09:42] VITALS: BP 176/69; PULSE 58; RESP 18; TEMP 36.5; O2SAT 99
[2023-10-06 09:53] VITALS: BP 161/74; PULSE 55; RESP 18; O2SAT 96
--- NOTE | 2023-10-06 13:16 | ANE.PACU2 ---
Inpatient post-anesthesia follow up: Airway intact: Yes Vital signs: Temperature 97.7 F Pulse Rate 55 Respiratory Rate 18 Blood Pressure 161/74 Pulse Oximetry 96 Oxygen Delivery Me thod Room Air Oxygen Flow Rate Fraction of Inspir ed Oxygen Hydration adequate: Yes Nausea and vomiting: No Pain level: 2 Mental status: Baseline
== END 2023-10-06 10:25 | disposition home or self-care (01) ==
PROVIDERS: PCP Nurse Practitioner Family; Visit Provider Surgery
PROC: 0DJ08ZZ Inspection of Upper Intestinal Tract, Via Natural or Artificial Opening Endoscopic (ICD-10-PCS; CPT 43235; principal; 2023-10-06 09:30)
DX: K27.9 Peptic ulcer, site unspecified, unspecified as acute or chronic, without hemorrhage or perforation (principal); K29.50 Unspecified chronic gastritis without bleeding; I11.0 Hypertensive heart disease with heart failure; I50.9 Heart failure, unspecified; I25.2 Old myocardial infarction; K21.9 Gastro-esophageal reflux disease without esophagitis; M06.9 Rheumatoid arthritis, unspecified; Z86.73 Personal history of transient ischemic attack (TIA), and cerebral infarction without residual deficits; Z79.82 Long term (current) use of aspirin; I25.10 Atherosclerotic heart disease of native coronary artery without angina pectoris; E78.5 Hyperlipidemia, unspecified; M79.7 Fibromyalgia
CPT/HCPCS: 43239; 88305; 88312; 88342; J2704; J3490; J7030

== ENCOUNTER 2023-10-11 12:33 | Outpatient (CLI) | payer MEDICARE, MEDICAID, SELFPAY ==
--- NOTE | 2023-10-11 14:00 | XR_ITS ---
WS: [id number] SCREENING DEXA SCAN [facility] CLINICAL INFORMATION: Z78.0 - Asymptomatic menopausal state COMPARISON: 2019 FINDINGS: The LEFT forearm bone mineral density measures 0.75. This corresponds to a T score score of -1.5 and Z score of 0.8. Left femoral neck bone mineral density measures 0.927 g/cm2. This corresponds to a T score of -0.6 an d Z score of 0.9. Right femoral neck bone mineral density measures 0.841 g/cm2. This corresponds to a T score -1.3of an d Z score of 0.2. Mean femoral neck bone mineral density measures 0.884 g/cm2. This corresponds to a T score of -1.0 an d Z score of 0.5. IMPRESSION: Osteopenia LEFT forearm. Osteopenia femoral necks lower end of the range. Patient's FRAX calculated 10 year probability for major osteoporotic fracture is 12.5% and osteoporot ic hip fracture is 3.0%. Bone mineral density LEFT forearm decreased -10.9% and -3.0% femoral necks
== END 2023-10-11 12:34 | disposition home or self-care (01) ==
LOC: RAD 12:34
PROVIDERS: PCP Nurse Practitioner Family; Visit Provider Nurse Practitioner Family
DX: Z13.820 Encounter for screening for osteoporosis (principal); Z78.0 Asymptomatic menopausal state; M85.89 Other specified disorders of bone density and structure, multiple sites
CPT/HCPCS: 77080

== ENCOUNTER 2023-11-01 13:35 | Outpatient (CLI) | payer MEDICARE, MEDICAID, SELFPAY ==
--- NOTE | 2023-11-01 13:43 | MM_ITS ---
WS: [id number] DIAGNOSTIC BILATERAL DIGITAL BREAST TOMOSYNTHESIS MAMMOGRAPHY WITH CAD RIGHT breast ultrasound, limited. HISTORY: R92.8 - Other abnormal and inconclusive findings on diagn... COMPARISON: 04/30/2022, 11/03/2021, 10/12/2021 and 05/19/2020 TECHNIQUE: Bilateral craniocaudad, mediolateral oblique, and mediolateral views are submitted with to mosynthesis and SM. Computer aided detection utilized. Breast composition: There are scattered areas of fibroglandular density. Stable appearance to both br east with no development of distortion. No mass identified. RIGHT breast ultrasound, limited. Ultrasound directed to the anterior breast as on the prior ultrasound. There are a few very small dil ated ducts. No intraductal nodule. No ectasia or debris. IMPRESSION: MM/[place] [id number] BI-RADS: 2-Benign FOLLOW UP: 1 Year Follow-up
--- NOTE | 2023-11-01 14:30 | US_ITS ---
WS: [id number] DIAGNOSTIC BILATERAL DIGITAL BREAST TOMOSYNTHESIS MAMMOGRAPHY WITH CAD RIGHT breast ultrasound, limited. HISTORY: R92.8 - Other abnormal and inconclusive findings on diagn... COMPARISON: 04/30/2022, 11/03/2021, 10/12/2021 and 05/19/2020 TECHNIQUE: Bilateral craniocaudad, mediolateral oblique, and mediolateral views are submitted with to mosynthesis and SM. Computer aided detection utilized. Breast composition: There are scattered areas of fibroglandular density. Stable appearance to both br east with no development of distortion. No mass identified. RIGHT breast ultrasound, limited. Ultrasound directed to the anterior breast as on the prior ultrasound. There are a few very small dil ated ducts. No intraductal nodule. No ectasia or debris. IMPRESSION: US/US breast RT limited* [id number] BI-RADS: 2-Benign FOLLOW UP: 1 Year Follow-up
== END 2023-11-01 13:36 | disposition home or self-care (01) ==
LOC: RAD 13:36
PROVIDERS: PCP Nurse Practitioner Family; Visit Provider Nurse Practitioner Family
DX: R92.8 Other abnormal and inconclusive findings on diagnostic imaging of breast (principal); N63.0 Unspecified lump in unspecified breast; R92.323 Mammographic fibroglandular density, bilateral breasts; K29.70 Gastritis, unspecified, without bleeding; Z79.899 Other long term (current) drug therapy
CPT/HCPCS: 76642; 77062; 99213; G0279

== ENCOUNTER → 2024-03-08 11:13 | Outpatient (BNVA) | payer MEDICARE, MEDICAID, SELFPAY | PROVIDERS: PCP Nurse Practitioner Family; Visit Provider Internal Medicine | DX: I10 Essential (primary) hypertension (principal); Z98.890 Other specified postprocedural states; E78.5 Hyperlipidemia, unspecified; I25.10 Atherosclerotic heart disease of native coronary artery without angina pectoris; Z86.73 Personal history of transient ischemic attack (TIA), and cerebral infarction without residual deficits | CPT/HCPCS: 99214 ==

== ENCOUNTER → 2024-04-23 09:11 | Outpatient (BNVA) | payer MEDICARE, MEDICAID, SELFPAY | PROVIDERS: PCP Nurse Practitioner Family; Visit Provider Nurse Practitioner Family | DX: I10 Essential (primary) hypertension (principal) | CPT/HCPCS: 80053; 80061 ==

== ENCOUNTER → 2024-06-08 13:00 | Outpatient (BNVA) | payer MEDICARE, MEDICAID, SELFPAY | PROVIDERS: PCP Nurse Practitioner Family; Visit Provider Nurse Practitioner Family | DX: I10 Essential (primary) hypertension (principal); R20.0 Anesthesia of skin; R53.83 Other fatigue | CPT/HCPCS: 80053; 84443; 85025 ==

== ENCOUNTER 2024-08-09 09:59 | Outpatient (CLI) | payer MEDICARE, MEDICAID, SELFPAY ==
--- NOTE | 2024-08-09 10:15 | USCV_ITS ---
Michelle Mello Age: 74 Gender: F : 1950 Exam Date: 08/09/2024 10:04 Ordering Phys: Ten Vila M.D ([email or web address]) Technologist: CONSTANITN [place]am Location[place] [facility] [place] [facility] [place] Indication: RIGHT CEA Risk Factors: Previous Vascular Surgery: Right Brachial BP: / Left Brachial BP: / Right Left Velocity (cm/s) Spectral Plaque Velocity (cm/s) Spectral Plaque Syst/Diast Broadening Syst/Diast Broadening 104.40/16.80 Prox CCA 72.70 / 13.90 55.70/ 14.50 Mid CCA 58.70 / 16.80 69.20/ 18.50 Distal CCA 61.30 / 16.30 59.10/ 13.60 Prox ICA 44.30 / 9.30 63.80/ 17.50 Mid ICA 55.90 / 12.70 43.50/ 13.00 Distal ICA 70.60 / 18.90 89.70 ECA 45.30 0.90 ICA/CCA 1.20 Antegrade Vertebral Antegrade 34.80/ 11.20 cm/s 46.20/ 10.40 cm/s Tri Subclavian Tri 106.6 113.4 0 0 CONCLUSIONS Right ICA stenosis <50%. Mild atheromatous plaque right carotid bulb/ICA. Left ICA stenosis <50%. Mild atheromatous plaque left carotid bulb/ICA. Intimal thickening in the common carotid arteries and internal carotid arteries bilaterally. Normal antegrade Doppler flow noted in the right vertebral artery. Normal antegrade Doppler flow noted in the left vertebral artery. Ata Meadows MD (Electronically Signed) Final Date: 09 August 2024 13:29 S
== END 2024-08-09 10:00 | disposition home or self-care (01) ==
LOC: RAD 10:00
PROVIDERS: PCP Nurse Practitioner Family; Visit Provider Internal Medicine
DX: I65.23 Occlusion and stenosis of bilateral carotid arteries (principal)
CPT/HCPCS: 93880

== ENCOUNTER → 2024-09-20 12:44 | Outpatient (BNVA) | payer MEDICARE, MEDICAID, SELFPAY | PROVIDERS: PCP Nurse Practitioner Family; Visit Provider Internal Medicine | DX: I10 Essential (primary) hypertension (principal); I65.29 Occlusion and stenosis of unspecified carotid artery; Z98.890 Other specified postprocedural states; E78.5 Hyperlipidemia, unspecified; I25.10 Atherosclerotic heart disease of native coronary artery without angina pectoris; Z86.73 Personal history of transient ischemic attack (TIA), and cerebral infarction without residual deficits | CPT/HCPCS: 99214 ==

== ENCOUNTER → 2024-10-09 09:00 | Outpatient (BNVA) | payer MEDICARE, MEDICAID, SELFPAY | PROVIDERS: PCP Nurse Practitioner Family; Referring Provider Orthopaedic Surgery Adult Reconstructive Orthopaedic Surgery; Visit Provider Nurse Practitioner Family | DX: S83.241A Other tear of medial meniscus, current injury, right knee, initial encounter (principal); S83.281A Other tear of lateral meniscus, current injury, right knee, initial encounter; Z01.818 Encounter for other preprocedural examination; X58.XXXA Exposure to other specified factors, initial encounter | CPT/HCPCS: 80048; 85025 ==

== ENCOUNTER → 2024-10-24 13:50 | Outpatient (BNVA) | payer MEDICARE, MEDICAID, SELFPAY | PROVIDERS: PCP Nurse Practitioner Family; Visit Provider Family Medicine | DX: R30.0 Dysuria (principal) | CPT/HCPCS: 81000 ==

== ENCOUNTER → 2024-11-07 14:31 | Outpatient (BNVA) | payer MEDICARE, MEDICAID, SELFPAY | PROVIDERS: PCP Nurse Practitioner Family; Visit Provider Nurse Practitioner Family | DX: N23 Unspecified renal colic (principal) | CPT/HCPCS: 80053; 81000; 85025 ==

== ENCOUNTER 2024-12-01 06:30 | Outpatient (RCR) | payer MEDICARE, MEDICAID, SELFPAY | END 2024-12-31 23:59 | disposition home or self-care (01) | LOC: GPT 06:30 | PROVIDERS: PCP Nurse Practitioner Family; Visit Provider Nurse Practitioner Adult Health | DX: Z98.890 Other specified postprocedural states (principal) | CPT/HCPCS: 97110; 97112; 97140; 97161 ==

== ENCOUNTER → 2024-12-07 09:00 | Outpatient (BNVA) | payer MEDICARE, MEDICAID, SELFPAY | PROVIDERS: PCP Nurse Practitioner Family; Visit Provider Nurse Practitioner Family | DX: N23 Unspecified renal colic (principal) | CPT/HCPCS: 80053 ==

== ENCOUNTER 2025-01-01 06:00 | Outpatient (RCR) | payer MEDICARE, MEDICAID, SELFPAY | END 2025-01-30 23:59 | disposition home or self-care (01) | LOC: GPT 06:00 | PROVIDERS: PCP Nurse Practitioner Family; Visit Provider Nurse Practitioner Adult Health | DX: Z98.890 Other specified postprocedural states (principal) | CPT/HCPCS: 97110; 97112; 97140 ==

== ENCOUNTER 2025-01-18 11:12 | Outpatient (CLI) | payer MEDICARE, MEDICAID, SELFPAY ==
--- NOTE | 2025-01-18 11:22 | MM_ITS ---
WS: [id number] Bilateral screening 3D tomosynthesis digital mammogram, 01/18/2025 11:27 AM Clinical Data: SCREENING Comparison: 11/01/2023, 04/30/2022, 11/03/2021, 10/12/2021, 05/19/2020 Findings: No spiculated masses or clustered calcifications are seen. There are no secondary signs of carcinoma. There are vascular calcifications in the left breast. MM/MM scr BI tomosynthesis [id number] Impression: Negative bilateral mammogram unchanged. Recommend annual screening mammograms. BIRADS: 1 - Negative. FOLLOW UP: 1 Year Follow-up DENSITY: There are scattered areas of fibroglandular density. The CAD content checker was used
== END 2025-01-18 11:13 | disposition home or self-care (01) ==
PROVIDERS: PCP Nurse Practitioner Family; Visit Provider Nurse Practitioner Family
DX: Z12.31 Encounter for screening mammogram for malignant neoplasm of breast (principal); R92.1 Mammographic calcification found on diagnostic imaging of breast; R92.323 Mammographic fibroglandular density, bilateral breasts
CPT/HCPCS: 77063; 77067

== ENCOUNTER 2025-02-15 13:07 | Outpatient (CLI) | payer MEDICARE, MEDICAID, SELFPAY ==
--- NOTE | 2025-02-15 13:15 | USCV_ITS ---
Michelle Mello Age: 74 Gender: F : 1950 Exam Date: 02/15/2025 13:19 Ordering Phys: Ten Vila M.D ([email or web address]) Technologist: ANTONIETTA [place] [facility] [place]: [place] Risk Factors: Previous Vascular Surgery: Right Brachial BP: / Left Brachial BP: / Right Left Velocity (cm/s) Spectral Plaque Velocity (cm/s) Spectral Plaque Syst/Diast Broadening Syst/Diast Broadening 74.80/ 14.60 Prox CCA 53.70 / 11.10 62.70/ 15.60 Mid CCA 59.00 / 14.90 64.40/ 10.90 Distal CCA 58.90 / 17.30 56.60/ 14.30 Prox ICA 43.60 / 13.50 53.60/ 16.20 Mid ICA 58.10 / 17.50 48.30/ 15.80 Distal ICA 49.80 / 16.00 90.80 ECA 53.80 0.90 ICA/CCA 0.70 Antegrade Vertebral Antegrade 56.30/ 15.30 cm/s 44.90/ 11.20 cm/s Tri Subclavian Tri 79.90 89.70 FINDINGS Comparison:. 08/09/24 No significant elevation of systolic or diastolic velocities. Waveforms are normal. Mixture of calcified and noncalcified plaque in the bifurcations. Antegrade vertebral arteries. CONCLUSIONS Bilateral ICA stenosis less than 50%. No interval change in stenosis since prior exam. Dr. Rubina Loera DO (Electronically Signed) Final Date: 15 Feb 2025 14:59 S
== END 2025-02-15 13:08 | disposition home or self-care (01) ==
PROVIDERS: PCP Nurse Practitioner Family; Visit Provider Internal Medicine
DX: I65.23 Occlusion and stenosis of bilateral carotid arteries (principal)
CPT/HCPCS: 93880

== ENCOUNTER → 2025-03-27 13:39 | Outpatient (BNVA) | payer MEDICARE, MEDICAID, SELFPAY | PROVIDERS: PCP Nurse Practitioner Family; Visit Provider Nurse Practitioner Family | DX: I65.23 Occlusion and stenosis of bilateral carotid arteries (principal); I10 Essential (primary) hypertension; E78.5 Hyperlipidemia, unspecified; Z79.82 Long term (current) use of aspirin; Z86.73 Personal history of transient ischemic attack (TIA), and cerebral infarction without residual deficits; I25.2 Old myocardial infarction | CPT/HCPCS: 99213 ==

== ENCOUNTER → 2025-04-08 09:29 | Outpatient (BNVA) | payer MEDICARE, MEDICAID, SELFPAY | PROVIDERS: PCP Nurse Practitioner Family; Visit Provider Nurse Practitioner Family | DX: N28.9 Disorder of kidney and ureter, unspecified (principal) | CPT/HCPCS: 80053 ==